=== PATIENT | female | born 1940 | race Caucasian/White ===

== ENCOUNTER 2021-10-17 20:32 | Inpatient (IN) | payer MEDICARE, SELFPAY ==
[2021-10-17] VITALS (7 sets, daily range): BP systolic 92–116; BP diastolic 66–83; PULSE 98–151; RESP 24–34; O2SAT 78–94; BMI 19.2
--- NOTE | 2021-10-17 20:41 | XRR_ITS ---
PROCEDURE INFORMATION: Exam: XR Chest Exam date and time: 10/17/2021 9:00 PM Age: 80 years old Clinical indication: Shortness of breath; Additional info: Atrial fib TECHNIQUE: Imaging protocol: XR of the chest. Views: 1 view. COMPARISON: No relevant prior studies available. FINDINGS: Lungs: The upper lungs are grossly clear however the mid and lower lung zones could not be adequately assessed. Follow-up with lateral view or CT may be helpful if clinically indicated. Increased opacity along the right perihilar and possibly right heart border may be related to partial right lung collapse or other para cardiac/mediastinal or pulmonary process. Pleural spaces: No obvious pneumothorax. Probable small right pleural effusion. Left pleural effusion may also be present. Heart/Mediastinum: Cardiac silhouette size is somewhat obscured but is probably enlarged. Diaphragm: Markedly elevated left hemidiaphragm. Correlation with diaphragmatic paralysis should be considered. The right hemidiaphragm may also somewhat elevated. Bones/joints: No acute findings. XR/XR chest 1V portable [id number] IMPRESSION: Extremely limited exam with multiple abnormalities as described above. Comparison prior study/CT correlation may be helpful.
--- NOTE | 2021-10-17 20:42 | ECG_ITS ---
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 Measurements Intervals [place] Rate: 164 P: MS: QRS: 56 QRSD: 85 T: 122 QT: 249 QTc: 412 Interpretive Statements ATRIAL FIBRILLATION WITH RAPID VENTRICULAR RESPONSE MINIMAL ST DEPRESSION [0.025+ mV ST DEPRESSION] ABNORMAL QRS-T ANGLE [QRS-T AXIS DIFFERENCE > 60] No previous ECG available for comparison Electronically Signed On 10-18-2021 20:28:22 CDT by Brendan Shepherd M.D. [id number] f
[2021-10-17] MEDS: sodium chloride 0.9% 500 ML IV (20:50)
[2021-10-17] MEDS: metoprolol tartrate 1 mg/1 mL SDV 5 mL 5 MG IVP (20:50)
[2021-10-17 20:54] LABS: Basophils % 0.2 %; Hematocrit 48.4 % (37.0-47.0); Hemoglobin 14.1 g/dL (11.5-15.3); Lymphocytes # 0.6 10^3/uL (0.8-4.8); Lymphocytes % 6.4 %; Mean Corpuscular HGB Conc 29.1 g/dL (30.0-36.0); Mean Corpuscular Hemoglobin 28.1 pg (28.0-34.0); Mean Corpuscular Volume 96.4 fl (81-99); Mean Platelet Volume 9.4 fL (7.4-10.4); Monocytes # 0.6 10^3/uL (0.2-0.9); Monocytes % 7.4 %; Neutrophils # 7.41 10^3/uL (1.8-7.7); Neutrophils % 85.5 %; Nucleated Red Blood Cells % 0.2 %; Platelet Count 199 10^3/cmm (130-400); Red Blood Count 5.02 10^6/uL (4.1-5.3); Red Cell Distribution Width 15.1 % (12.1-15.1); White Blood Count 8.7 10^3/uL (4.0-10.0)
--- NOTE | 2021-10-17 20:56 | ED_ITS ---
HPI - General Adult General: Chief complaint: Shortness of Breath/Dyspnea Stated complaint: WEAKNESS Time Seen by Provider: 10/17/21 20:35 History of Present Illness: 80-year-old female presents with fast heart rate and shortness of breath. Patient reports that she started having feelings of fast heart rate about 3 weeks ago. That she is been having a worsening shortness of breath. EMS reports that when they arrived that her heart rate was in the 200s and her oxygen was in the 70s. They placed an IV. EKG showed A. fib with RVR. They gave her 30 of Cardizem IV and started her on oxygen. Patient reports that she has no known medical history and is only been to the doctor 1 time in her life. She takes no medications. Patient does have a significant yeast infection along her pannus and left groin but does not state how long its been there. Associated symptoms: Reports dyspnea, malaise, rash (see hpi ) and palpitations; Deny chest pain, nausea or vomiting Review of Systems Const: Reports: malaise; Denies: fever(s) or chills Card: Reports: palpitations and irregular heart rhythm; Denies: chest pain Resp: Reports: dyspnea; Denies: wheezing GI: Denies: abdominal pain, nausea or vomiting : Denies: difficulty voiding Musc: Reports: other (no symptoms reported) Skin/Breast: Reports: rash (see hpi ) Physical Exam Const: COMMON NORMALS: alert GENERAL APPEARANCE: frail appearing HENMT: COMMON NORMALS: normocephalic and atraumatic HEAD & SCALP: normocephalic and atraumatic Chest: Breast/axilla inspection: Yes asymmetry Resp: EFFORT & INSPECTION: Yes tachypneic AUSCULTATION: diminished lung sounds diffuse Cardio: RATE: tachycardic RHYTHM: abnormal rhythm irregularly irregular GI: COMMON NORMALS: Soft to palpation PALPATION: Yes Soft to palpation and No Tenderness to palpation present (GI) Neuro: SENSORIUM/ORIENTATION: Yes alert Psych: APPEARANCE: Yes other (Frail, disheveled) Course Vital Signs: Vital signs: Vital Signs Pulse Rate 147 H 10/17/21 22:01 Respiratory Rate 33 H 10/17/21 22:01 Blood Pressure 116/83 10/17/21 20:36 Pulse Oximetry 94 10/17/21 22:01 MDM - General Adult Medical Decision Making While in the ER patient was given metoprolol 5 mg IV. Patient's heart rate would bounce between 120s to 160s. Patient remained on about 5 to 6 L oxygen with her O2 saturations in the mid 90s. Patient was placed on a Cardizem drip and her rate slowed to very sporadic 120s about 140s.. Patient's labs show a BUN of 48 creatinine 1.2. She is also given a 500 mL bolus. Patient with no prior history and no prior labs to compare so unsure what her baseline is. Patient had extremely limited chest x-ray. Was based on radiology impression was going to obtain lateral view to help with better impression however patient to be admitted to Dr. Wilkins who requested a CT be performed prior to her being transferred to the floor. Lab Data : 10/17/21 20:50 10/17/21 20:50 Radiology Impressions Chest X-Ray 10/17/21 20:41 IMPRESSION: Extremely limited exam with multiple abnormalities as described above. Comparison prior study/CT correlation may be helpful. Chest CT 10/17/21 22:06 IMPRESSION: 1. Markedly elevated left hemidiaphragm. See discussion above. 2. Small bilateral pleural effusions with adjacent consolidations which may represent compressive atelectasis versus pneumonia. Follow-up should be obtained. No ground-glass opacity. 3. Dilatation of main pulmonary artery and ascending aorta. 4. Etua-xt-esqnctpu cardiomegaly with coronary calcification probable mild vascular congestion. No obvious pulmonary edema. 5. Thyroid and vertebral findings as described above. See comments below. COMMENTS: 1. Consistent with the [place] [employer]'s Incidental Findings Committee white paper (J Am Stefania Radiol 2018): Any incidental renal lesion less than 1 cm or classified as too small to characterize, or any incidental cystic renal lesion characterized as simple-appearing, is likely benign. No follow-up imaging is recommended for these lesions per consensus recommendations based on imaging criteria. 2. Consistent with the [place] [employer]'s Incidental Findings Committee white paper (J Am Stefania Radiol 2015): In patients aged 35 years and older with an incidental thyroid nodule equal to or greater than 1.[address], MRI or extrathyroidal US, further evaluation with dedicated thyroid US is recommended for patients with normal life expectancy and without comorbidities. For smaller nodules without suspicious features, no further evaluation or follow up is recommended. 3. Limited life expectancy and comorbidities that increase the risk of treatment or are more likely to cause morbidity and mortality than the thyroid cancer itself. Patients with comorbidities or limited life expectancy should not have further evaluation, unless it is warranted clinically, or specifically requested by the patient or referring physician. Laboratory Results WBC 8.7 10^3/uL (4.0-10.0) 10/17/21 20:50 RBC 5.02 10^6/uL (4.1-5.3) 10/17/21 20:50 Hgb 14.1 g/dL (11.5-15.3) 10/17/21 20:50 Hct 48.4 % (37.0-47.0) H 10/17/21 20:50 MCV 96.4 fl (81-99) 10/17/21 20:50 MCH 28.1 pg (28.0-34.0) 10/17/21 20:50 MCHC 29.1 g/dL (30.0-36.0) L 10/17/21 20:50 RDW 15.1 % (12.1-15.1) 10/17/21 20:50 Plt Count 199 10^3/cmm (130-400) 10/17/21 20:50 MPV 9.4 fL (7.4-10.4) 10/17/21 20:50 Neut % (Auto) 85.5 % 10/17/21 20:50 Lymph % (Auto) 6.4 % 10/17/21 20:50 Ward % (Auto) 7.4 % 10/17/21 20:50 Eos % (Auto) 0.0 % 10/17/21 20:50 Baso % (Auto) 0.2 % 10/17/21 20:50 Neut # (Auto) 7.41 10^3/uL (1.8-7.7) 10/17/21 20:50 Lymph # (Auto) 0.6 10^3/uL (0.8-4.8) L 10/17/21 20:50 Ward # (Auto) 0.6 10^3/uL (0.2-0.9) 10/17/21 20:50 Eos # (Auto) 0.0 10^3/uL (0.0-0.8) 10/17/21 20:50 Baso # (Auto) 0.0 10^3/uL (0.0-0.1) 10/17/21 20:50 Nucleated RBC % (auto) 0.2 % 10/17/21 20:50 Nucleated RBCs # 0.0 /100WBC 10/17/21 20:50 Sodium 138 mmol/L (136-145) 10/17/21 20:50 Potassium 5.2 mmol/L (3.5-5.1) H 10/17/21 20:50 Chloride 99 mmol/L (98-107) 10/17/21 20:50 Carbon Dioxide 28 mmol/L (22-29) 10/17/21 20:50 Anion Gap 16.2 (5-19) 10/17/21 20:50 BUN 48 mg/dL (8-23) H 10/17/21 20:50 Creatinine 1.2 mg/dL (0.5-0.9) H 10/17/21 20:50 GFR Calculation Not Reportable 10/17/21 20:50 Glucose 116 mg/dL (65-115) H 10/17/21 20:50 Calculated Osmolality 300 mOsm/kg (285-295) H 10/17/21 20:50 Calcium 9.0 mg/dL (8.5-10.5) 10/17/21 20:50 Magnesium 2.3 mg/dL (1.7-2.3) 10/17/21 20:50 Total Bilirubin 0.7 mg/dL (0.15-1.2) 10/17/21 20:50 AST 38 U/L (0-32) H 10/17/21 20:50 ALT 48 U/L (0-33) H 10/17/21 20:50 Alkaline Phosphatase 130 IU/L (35-105) H 10/17/21 20:50 Troponin T Baseline 33 ng/L (0-10) H 10/17/21 20:50 Total Protein 6.7 g/dL (6.6-8.7) 10/17/21 20:50 Albumin 4.4 g/dL (3.5-5.2) 10/17/21 20:50 Globulin 2.3 g/dL (1.3-4.6) 10/17/21 20:50 TSH 0.01 uIU/mL (0.27-4.20) L 10/17/21 20:50 Free T4 1.62 ng/dL (0.82-1.77) 10/17/21 20:50 EKG Data EKG 1: I personally reviewed and interpreted this EKG as follows: EKG interpretation date: 10/17/21 EKG interpretation time: 22:42 Interpretation: Atrial for with RVR, PVCs, ventricular rate 131. No prior EKG Computer generated interpretation: Chest X-Ray 10/17/21 20:41 IMPRESSION: Extremely limited exam with multiple abnormalities as described above. Comparison prior study/CT correlation may be helpful. Chest CT 10/17/21 22:06 IMPRESSION: 1. Markedly elevated left hemidiaphragm. See discussion above. 2. Small bilateral pleural effusions with adjacent consolidations which may represent compressive atelectasis versus pneumonia. Follow-up should be obtained. No ground-glass opacity. 3. Dilatation of main pulmonary artery and ascending aorta. 4. Frfm-yo-faxjvzfd cardiomegaly with coronary calcification probable mild vascular congestion. No obvious pulmonary edema. 5. Thyroid and vertebral findings as described above. See comments below. COMMENTS: 1. Consistent with the [place] [employer]'s Incidental Findings Committee white paper (J Am Stefania Radiol 2018): Any incidental renal lesion less than 1 cm or classified as too small to characterize, or any incidental cystic renal lesion characterized as simple-appearing, is likely benign. No follow-up imaging is recommended for these lesions per consensus recommendations based on imaging criteria. 2. Consistent with the [place] [employer]'s Incidental Findings Committee white paper (J Am Stefania Radiol 2015): In patients aged 35 years and older with an incidental thyroid nodule equal to or greater than 1.[address], MRI or extrathyroidal US, further evaluation with dedicated thyroid US is recommended for patients with normal life expectancy and without comorbidities. For smaller nodules without suspicious features, no further evaluation or follow up is recommended. 3. Limited life expectancy and comorbidities that increase the risk of treatment or are more likely to cause morbidity and mortality than the thyroid cancer itself. Patients with comorbidities or limited life expectancy should not have further evaluation, unless it is warranted clinically, or specifically requested by the patient or referring physician. Discharge Plan Discharge Patient Disposition: Admitted As Inpatient Clinical Impression: Atrial fibrillation with RVR Condition: Stable Coding Level of Care Code ED Visual Effects Editor for Chg Fwd Exam Detailed
[2021-10-17 21:17] LABS: Troponin(5th) Baseline 33 ng/L (0-10)
[2021-10-17 21:22] LABS: Alanine Aminotransferase 48 U/L (0-33); Albumin Level 4.4 g/dL (3.5-5.2); Alkaline Phosphatase 130 IU/L (35-105); Anion Gap 16.2 (5-19); Aspartate Amino Transferase 38 U/L (0-32); Blood Urea Nitrogen 48 mg/dL (8-23); Carbon Dioxide 28 mmol/L (22-29); Chloride 99 mmol/L (98-107); Globulin 2.3 g/dL (1.3-4.6); Glucose 116 mg/dL (65-115); Magnesium 2.3 mg/dL (1.7-2.3); Osmolality Calculated 300 mOsm/kg (285-295); Potassium 5.2 mmol/L (3.5-5.1); Sodium 138 mmol/L (136-145); Thyroid Stimulating Hormone 0.01 uIU/mL (0.27-4.20); Total Bilirubin 0.7 mg/dL (0.15-1.2); Total Protein 6.7 g/dL (6.6-8.7)
[2021-10-17] MEDS: nystatin powder 15 gm Btl 1 APPLIC TOPICAL (21:32)
[2021-10-17 21:57] LABS: Free T4 Free Thyroxine 1.62 ng/dL (0.82-1.77)
--- NOTE | 2021-10-17 22:06 | CTR_ITS ---
PROCEDURE INFORMATION: Exam: CT Chest Without Contrast; Diagnostic Exam date and time: 10/17/2021 10:32 PM Age: 80 years old Clinical indication: Dyspnea TECHNIQUE: Imaging protocol: Diagnostic computed tomography of the chest without contrast. Radiation optimization: All CT scans at this facility use at least one of these dose optimization techniques: automated exposure control; mA and/or kV adjustment per patient size (includes targeted exams where dose is matched to clinical indication); or iterative reconstruction. COMPARISON: CR (CHEST, ) 10/17/2021 9:00 PM RADIATION DOSE METRICS: Total DLP (mGy-cm): 677.56 FINDINGS: Thyroid: Enlarged left thyroid lobe and is replaced by a heterogeneous solid partially calcified nodule, measuring about 3.4 x 3.1 cm. Lungs: Calcified right upper lobe pulmonary granuloma. Pleural spaces: Small right pleural effusion with small adjacent consolidation, likely compressive atelectasis however follow-up may be considered if there is a concern for developing pneumonia. There is also small left pleural effusion with adjacent left lower lobe consolidation. This may represent compressive atelectasis versus pneumonia and follow-up should also be obtained. Heart: Anfg-zy-cdffvstx cardiomegaly with coronary calcification. Lymph nodes: No enlarged lymph nodes. Vasculature: Moderate dilatation of main pulmonary artery at 4 cm. Clinical correlation for pulmonary hypertension should be obtained. Mild ascending aortic dilatation at 4.2 cm. There is pulmonary vascular redistribution suggesting element of mild vascular congestion. Diaphragm: The right diaphragm is in normal position. There is markedly elevated left hemidiaphragm and correlation with diaphragmatic paralysis should be considered. Kidneys and ureters: Hypodense left renal lesions, likely simple cysts, measuring up to 2.2 cm. Bones/joints: Several images are degraded due to external streak artifacts arising from patient's arm(s). Osteopenia. Multilevel moderate-severe compression deformities of thoracic and lumbar vertebral bodies with no subluxation. Small to moderate retropulsed elements are noted at T12 through L2 with jriu-dh-puxufnmb central spinal canal narrowing. Although these findings may be chronic, clinical correlation/comparison prior study should be considered. Soft tissues: No acute findings. CT/CT chest wo con [id number] IMPRESSION: 1. Markedly elevated left hemidiaphragm. See discussion above. 2. Small bilateral pleural effusions with adjacent consolidations which may represent compressive atelectasis versus pneumonia. Follow-up should be obtained. No ground-glass opacity. 3. Dilatation of main pulmonary artery and ascending aorta. 4. Lfad-hc-nvvutsvt cardiomegaly with coronary calcification probable mild vascular congestion. No obvious pulmonary edema. 5. Thyroid and vertebral findings as described above. See comments below. COMMENTS: 1. Consistent with the [place] [employer]'s Incidental Findings Committee white paper (J Am Stefania Radiol 2018): Any incidental renal lesion less than 1 cm or classified as too small to characterize, or any incidental cystic renal lesion characterized as simple-appearing, is likely benign. No follow-up imaging is recommended for these lesions per consensus recommendations based on imaging criteria. 2. Consistent with the [place] [employer]'s Incidental Findings Committee white paper (J Am Stefania Radiol 2015): In patients aged 35 years and older with an incidental thyroid nodule equal to or greater than 1.[address], MRI or extrathyroidal US, further evaluation with dedicated thyroid US is recommended for patients with normal life expectancy and without comorbidities. For smaller nodules without suspicious features, no further evaluation or follow up is recommended. 3. Limited life expectancy and comorbidities that increase the risk of treatment or are more likely to cause morbidity and mortality than the thyroid cancer itself. Patients with comorbidities or limited life expectancy should not have further evaluation, unless it is warranted clinically, or specifically requested by the patient or referring physician.
--- NOTE | 2021-10-17 22:42 | ECG_ITS ---
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 Measurements Intervals [place] Rate: 131 P: ND: QRS: 67 QRSD: 92 T: 79 QT: 290 QTc: 429 Interpretive Statements ATRIAL FIBRILLATION WITH RAPID VENTRICULAR RESPONSE WITH ABERRANT CONDUCTION OR VENTRICULAR PREMATURE COMPLEXES ABNORMAL RHYTHM ECG No previous ECG available for comparison Electronically Signed On 10-18-2021 20:37:17 CDT by Brendan Shepherd M.D. [email or web address] hospitals geauga medical centerAbigail Stewart/store/OM/[id number]/[id number]
[2021-10-17 23:25] LABS: Troponin 5 2HR 31.82 ng/L (0-10)
--- NOTE | 2021-10-17 23:25 | CTR_ITS ---
PROCEDURE INFORMATION: Exam: CT Head Without Contrast Exam date and time: 10/17/2021 11:28 PM Age: 80 years old Clinical indication: Other: Decreased responsiveness TECHNIQUE: Imaging protocol: Computed tomography of the head without contrast. Radiation optimization: All CT scans at this facility use at least one of these dose optimization techniques: automated exposure control; mA and/or kV adjustment per patient size (includes targeted exams where dose is matched to clinical indication); or iterative reconstruction. COMPARISON: No relevant prior studies available. RADIATION DOSE METRICS: Total DLP (mGy-cm): 1516.68 FINDINGS: Brain: No acute intracranial hemorrhage or mass effect. No definite acute infarct by CT. MRI could be more sensitive/specific for detection, as clinically directed. Cerebral ventricles: Ventricle size is normal for age. Paranasal sinuses: Included paranasal sinuses are essentially clear. Mastoid air cells: No significant acute finding. Bones/joints: No definite acute skull fracture. Soft tissues: No significant acute finding. Vasculature: Vascular calcifications in the internal carotid arteries. CT/CT head wo con* [id number] IMPRESSION: 1. No acute intracranial hemorrhage or mass effect. 2. No definite acute infarct by CT, see above. 3. Other findings discussed above.
--- NOTE | 2021-10-17 23:31 | P.HP_ITS ---
Providers/Chief Complaint Chief Complaint: WAEKNESS History of Present Illness The patient is a 72-year-old female who was transferred to the emergency department, I believe, for dyspnea. In the emergency department she is found to be in atrial fibrillation with rapid ventricular response. The patient has never been diagnosed with this previously. After 1 of the tests I had requested, CT of the chest, was performed evaluate the patient. The patient is unresponsive. She presents for further evaluation Review of Systems General: Reports: 10 or more systems reviewed and unremarkable except in HPI and below Vitals/I&O/Wt Last Vital Signs Pulse 147 H 10/17/21 22:01 Resp 33 H 10/17/21 22:01 BP 116/83 10/17/21 20:36 Pulse Ox 94 10/17/21 22:01 Weight last 48 hrs Weight 58.967 kg Physical Exam Narrative: General: -Alert -No acute distress -No dyspnea -No tachypnea Head: -Atraumatic -Normocephalic Eyes: -Pupils equally round and reactive to light and accommodation -Extraocular muscles intact Neurological: -Cranial nerves II-XII intact Neck: -No jugular venous distention -No thyromegaly -No cervical lymphadenopathy Heart: -Regular rate -Regular rhythm -No murmurs -No gallops -No rubs Lungs: -No wheeze -No rhonchi -No rales ? Abdomen: -Normal bowel sounds in all four quadrants -No rebound -No guarding -No tenderness Extremities: -2/4 pulse in all four extremities -No clubbing -No cyanosis -No edema -No calf tenderness present bilaterally -Negative Dev?s sign bilaterally Musculoskeletal: -5/5 bilateral upper extremity strength -5/5 bilateral lower extremity strength -Sensorium of bilateral upper extremities are equal and intact -Sensorium of bilateral lower extremities are equal and intact ? Additional Details / Additional Findings / Exceptions / Miscellaneous: Data : 10/17/21 20:50 10/17/21 20:50 A&P Assessment and plan (1) Atrial fibrillation with RVR: Status: Acute Plan Encephalopathy. Patient is obtunded to comatose at the time my encounter with with her. Will monitor patient on telemetry and check serial serial cardiac enzymes. Neuro checks every [address] of the head without contrast pending?stat. ABG pending. Ammonia level pending. Urine drug screen pending. Urinalysis pending. Admission to ICU for closer observation Atrial fibrillation. This may be a sequelae of hyperthyroidism. Will monitor patient on telemetry and checks her cardiac enzymes. Recheck EKG on the morning of September.2. Magnesium level within normal limits. Free T4 pending. Echo cardiac pending. IV Cardizem drip per protocol. I will initiate Lovenox 60 Mil l grams subcu tensely twice a day if the patient CT of the head is negative for acute process Transaminitis. Uncertain etiology. Will monitor LFTs periodically with CMP along with PT/INR. Creatine kinase level pending Acute renal insufficiency. Will monitor creatinine and intermittent. IV normal saline at 50 ML's per hour Query pneumonia. A cephamycin 500 Mill grams IV daily plus Rocephin 1 g IV daily plus ipratropium nebulized every 4 hours Hyperthyroidism. TSH depressed. Free T4 pending. Thyroid ultrasound pending. Antithyroglobulin antibody pending. Thyroid-stimulating immunoglobulin pending. Thyroid peroxidase antibody pending. Tapazole 5 Mill grams by mouth every 8 hours Coronary artery disease Osteopenia Query pulmonary hypertension. Echo cardiac pending DVT Proflex is. Bilateral SCD. If CT of the head is a negative for acute process, I will initiate Lovenox 60 Mill grams subcu tensely twice a day Attestations Medical Necessity Statement*: The patient's anticipate length of stay is greater than 2 midnights given that she is currently unresponsive, and has a new diagnosis of atrial fibrillation, and is hypoxic Coding Level of Care Code Acute Assembler Brazer for [facility] Diagnoses Atrial fibrillation with RVR I48.91
[2021-10-17 23:41] LABS: Troponin 5 2HR Delta -1.18 ABS# (0-10)
[2021-10-18] VITALS (112 sets, daily range): BP systolic 55–140; BP diastolic 24–100; PULSE 11–199; RESP 17–50; TEMP 35.4–37.3; O2SAT 75–100
[2021-10-18 00:01] LABS: Free T4 Free Thyroxine 1.52 ng/dL (0.82-1.77)
[2021-10-18 00:01] LABS: Alveolar-Arterial Oxygen Gradi 6.7 mmHg (5-10); Arterial Blood Gas Hematocrit 44.1 % (37-47); Base Excess ABG -2.9 mmol/L (-2.0-2.0); Blood Gas Allen Test Pos; Blood Gas Sample Site Brachial, left; Blood Gas Sample Type Arterial; HCO3 ABG 29.7 mmol/L (22-26); HGB O2 Sat 90.8 % (95-100); Ionized Calcium Level - ABG 1.2 mmol/L (1.1-1.4); Methemoglobin 0.6 % (0.4-1.5); Oxygen Device BIPAP; Oxygen Saturation ABG 92.3; PO2 ABG 82.3 mmHg (80.0-100.0); Potassium Level - ABG 5.3 mmol/L (3.5-5.0); Total Hemoglobin 14.4 g/dL (12-16)
[2021-10-18 00:02] LABS: ABG PCO2 96.3 mmHg (35-45)
[2021-10-18] MEDS: azithromycin 500 MG in sodium chloride 0.9% 250 ML 250 MG IV (00:21)
--- NOTE | 2021-10-18 00:45 | USCV_ITS ---
Hunter Lilia Age: 80 Gender: F : 1940 Exam Date: 10/18/2021 12:10 Ordering Phys: Tim Packer DO Technologist: Nalini Quiroga Exam Location: [facility] – [place] Indication: Chest Pain BP: 105 / 71 HR: 123 Rhythm: Sinus Technical Quality: Adequate MEASUREMENTS (Male / Female) Normal Values 2D ECHO LV Diastolic Diameter PLAX 2.6 cm 4.2 - 5.9 / 3.9 - 5.3 cm LV Systolic Diameter PLAX 1.7 cm LV Chamber Size 3.0 cm IVS Diastolic Thickness 1.0 cm 0.6 - 1.0 / 0.6 - 0.9 cm IVS Systolic Thickness 1.4 cm LVPW Diastolic Thickness 1.1 cm 0.6 - 1.0 / 0.6 - 0.9 cm LVPW Systolic Thickness 1.4 cm RV Chamber Size 3.1 cm LVOT Diameter 2.1 cm LV Ejection Fraction 2D Teich 67.7 % LV Ejection Fraction MOD 2C 65.7 % LV Ejection Fraction 2C AL 66.5 % LA Diameter 3.9 cm LA Width 2.3 cm LA Height 4.3 cm RA Width 3.1 cm RA Height 3.9 cm Aorta at Sinotubular Diameter 1.8 cm M-MODE Aortic Annulus Diameter 3.2 cm LA Ao Ratio MM 1.2 MV E Point Septal Separation 0.7 cm DOPPLER AV Peak Velocity 104.0 cm/s LVOT Peak Velocity 76.0 cm/s AV Area Cont Eq vti 3.6 cm squared AV Area Cont Eq pk 2.4 cm squared MV Area PHT 6.3 cm squared MV E' Velocity 45.5 cm/s Mitral E to MV E' Ratio 7.6 Mitral E to LV E' Lateral Ratio 8.1 Mitral E to LV E' Septal Ratio 7.2 TR Peak Velocity 229.6 cm/s TR Peak Gradient 21.1 mmHg TR Mean Velocity 159.4 cm/s TR Mean Gradient 11.8 mmHg TR Velocity Time Integral 47.5 cm TV Peak E Velocity 57.0 cm/s Right Atrial Pressure 8.0 mmHg Pulmonary Artery Systolic Pressu 29.1 mmHg PV Peak Velocity 46.0 cm/s RV Acceleration Time 0.1 s RV Ejection Time 0.3 s RV AcT/ET 0.4 FINDINGS Left Ventricle Technically limited quality echocardiogram because of poor ultrasonic windows. Normal left ventricular size. LV systolic function is normal with EF of 60-65%. No regional wall motion abnormalities. Diastolic function is indeterminate because of atrial fibrillation Right Ventricle Grossly normal Right Atrium The right atrium is normal in size. Left Atrium The left atrium is normal in size. Mitral Valve Grossly normal significant stenosis or prolapse. There is no mitral regurgitation. Aortic Valve Aortic valve is thickened and calcified. No significant stenosis. There is no aortic regurgitation. Tricuspid Valve Grossly normal. Mild tricuspid regurgitation. Pulmonary artery systolic pressure is normal. Pulmonic Valve Not well visualized Pericardium Normal pericardium without effusion. Aorta Normal ascending aorta dimension. IVC CONCLUSIONS Technically limited quality echocardiogram because of poor ultrasonic windows LV systolic function is normal with EF of 60-65% Diastolic function is indeterminate because of atrial fibrillation Mild tricuspid regurgitation No comparison study is available Brendan Shepherd MD (Electronically Signed) Final Date: 19 Oct 2021 13:32 S
--- NOTE | 2021-10-18 00:45 | USR_ITS ---
PROCEDURE INFORMATION: Exam: US Soft Tissue Head and Neck, Thyroid Exam date and time: 10/18/2021 2:31 AM Age: 80 years old Clinical indication: Abnormal findings; Abnormal thyroid lab test; Additional info: Hyperthyroid TECHNIQUE: Imaging protocol: Real-time ultrasound scan of the neck with image documentation. Exam focused on the thyroid. COMPARISON: CT head wo con* [id number] 10/17/2021 11:28 PM FINDINGS: Right thyroid lobe: The right thyroid lobe measures 1.3 x 1.8 x 4.4 cm. There is a heterogeneous echogenicity nodularity seen within the inferior aspect of the right thyroid lobe that measures 8 x 12 x 8 mm possibly representing a benign colloid cyst. Left thyroid lobe: The left thyroid lobe measures 3.9 x 3.4 x 4.4 cm. There is a heterogeneous mass seen in the left thyroid lobe exhibiting internal vascularity with color Doppler imaging. The mass measures 3.9 x 3.2 x 3.6 cm. Isthmus: No nodules. US/US thyroid [id number] IMPRESSION: Left thyroid lobe mass measuring 3.9 x 3.2 x 3.6 cm.
--- NOTE | 2021-10-18 01:08 | PC.NURSE ---
Transfer Note Patient transferred to ICU from ER via stretcher. Handoff received from DEVON Winn. Patient unresponsive upon arrival, wearing BIPAP mask and has cardizem gtt infusing per protocol. Covering service notified. Orders reviewed and will continue to monitor. Received in report that ER nurse was unable to contact family and provide update, due to provided numbers in chart being out of service when called.
--- NOTE | 2021-10-18 01:09 | PC.NURSE ---
Active Patient Warming Patient rectal temp 95.7. Called Dr. Packer, received orders to start active patient warming and apply geraldo hugger blanket.
[2021-10-18] MEDS: ipratropium 0.5 mg/2.5 mL Neb INHALATION ×3 (01:10→08:06)
[2021-10-18 01:14] LABS: Ammonia 68 umol/L (11-51)
[2021-10-18] MEDS: enoxaparin 60 mg/0.6 mL Syringe SUBCUT ×2 (01:18→12:54)
[2021-10-18] MEDS: sodium chloride 0.9% 1,000 ML 50 ML IV (01:18)
--- NOTE | 2021-10-18 01:18 | PC.NURSE ---
New Orders Received Patient BP noted to be 74/51 MAP 58 and HR of 118 on a Cardizem gtt at 10 mg/hr. Notified Dr. Packer of patient vitals-he gave orders to d/c cardizem gtt and start patient on Amiodarone gtt per protocol.
[2021-10-18 01:21] LABS: Arterial Blood Gas Hematocrit 42.6 % (37-47); Base Excess ABG -2.6 mmol/L (-2.0-2.0); Blood Gas Allen Test Pos; Blood Gas Sample Site Radial, left; Blood Gas Sample Type Arterial; HCO3 ABG 29.5 mmol/L (22-26); Oxygen Device BIPAP
[2021-10-18 01:22] LABS: ABG PCO2 92.6 mmHg (35-45); ABG PH Result 7.11 (7.35-7.45)
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
--- NOTE | 2021-10-18 01:31 | PC.NURSE ---
New Orders Received Patient BP 50/41, informed Dr. Packer who gave orders to start a Levophed gtt per protocol.
[2021-10-18 01:32] LABS: Add Urine Microscopic? NO
[2021-10-18 01:47] LABS: Amphetamines Screen Urine Negative (Negative); Barbiturates Screen Urine Negative (Negative); Benzodiazepines Screen Urine Negative (Negative); Blood Urine 2+ (Negative); Cocaine Screen Urine Negative (Negative); Glucose Urine UA Norm (Normal); Ketones Urine Negative (Negative); Opiate Screen Urine Negative (Negative); PCP Screen Urine Negative (Negative); Protein Urine 3+ (Negative); Specific Gravity, Urine 1.025 (1.005-1.030); THC Screen Urine Negative (Negative); Urine Appearance Clear (CLEAR); Urine Color Dark Yellow (Yellow); pH Urine 5 (5-7)
[2021-10-18 01:48] LABS: Bilirubin Urine 1+ (Negative); Leukocyte Esterase Urine 1+ (Negative); Nitrate Urine Positive (Negative); Urobilinogen Urine 4 mg/dL (Negative)
[2021-10-18 01:49] LABS: Add Urine Culture? Yes; Bacteria Urine 4+ /hpf; Hyaline Casts Urine 0-4 /lpf; Mucus Urine 2+ /hpf; RBC Urine 0-4 /hpf (0-2)
--- NOTE | 2021-10-18 01:54 | USR_ITS ---
PROCEDURE INFORMATION: Exam: US Abdomen, Limited; Right Upper Quadrant Exam date and time: 10/18/2021 2:57 AM Age: 80 years old Clinical indication: Other: Liver enzymes increased; Patient HX: PT not able to give any history. ; Additional info: Ruq US: Elevated lft TECHNIQUE: Imaging protocol: US abdomen. Real time ultrasound with image documentation. Limited exam focused on the right upper quadrant. COMPARISON: CT chest wo con [id number] 10/17/2021 10:32 PM FINDINGS: Liver: The liver measures 13.4 cm in the midclavicular plane. No mass. No evidence of intrahepatic biliary ductal dilatation. Gallbladder: The gallbladder could not be visualized. Biliary ducts: The common bile duct could not be visualized. Pancreas: The pancreas is obscured by bowel gas. Right kidney: The right kidney measures 11.0 x 6.5 x 7.1 cm. Mild pelviectasis measuring 9 mm AP dimension. A brief color Doppler examination of the right kidney was performed showing normal color shifts. Aorta: Unremarkable proximal abdominal aorta at. Inferior vena cava: Unremarkable IVC. Portal venous: A brief color and pulsed Doppler examination of the portal vein was performed showing normal hepatopedal flow. Hepatic veins: A brief color Doppler examination of the hepatic veins was performed, demonstrating normal antegrade flow. US/US abdomen limited [id number] IMPRESSION: 1. Limitations as above. 2. The gallbladder could not be visualized. Clinical correlation (prior cholecystectomy?) is recommended. 3. Mild right renal pelviectasis.
[2021-10-18 03:06] LABS: INR 1.38 (0.8-1.2)
[2021-10-18] MEDS: lactulose oral liq 20 gm/30 mL UDC 200 GM PR (03:07)
[2021-10-18 03:10] LABS: Ammonia 78 umol/L (11-51)
[2021-10-18 03:14] LABS: Alanine Aminotransferase 47 U/L (0-33); Albumin Level 3.8 g/dL (3.5-5.2); Alkaline Phosphatase 120 IU/L (35-105); Anion Gap 17.5 (5-19); Aspartate Amino Transferase 39 U/L (0-32); Blood Urea Nitrogen 49 mg/dL (8-23); Calcium 8.7 mg/dL (8.5-10.5); Carbon Dioxide 26 mmol/L (22-29); Chloride 102 mmol/L (98-107); Globulin 2.4 g/dL (1.3-4.6); Glucose 111 mg/dL (65-115); Osmolality Calculated 304 mOsm/kg (285-295); Potassium 5.5 mmol/L (3.5-5.1); Sodium 140 mmol/L (136-145); Total Bilirubin 0.6 mg/dL (0.15-1.2); Total Protein 6.2 g/dL (6.6-8.7); Troponin 5 6HR 30.83 ng/L (0-10)
[2021-10-18 03:23] LABS: Hepatitis A Antibody IgM Non-Reactive (Nonreactive); Hepatitis B Core IgM Non-Reactive (Nonreactive); Hepatitis B Surface Antigen Non-Reactive (Nonreactive); Hepatitis C Virus Antibody Non-Reactive (Nonreactive)
[2021-10-18 03:25] LABS: Troponin 5 6HR Delta -2.17 ng/L (0-12)
[2021-10-18 04:01] LABS: ABG PCO2 48.7 mmHg (35-45); ABG PH Result 7.33 (7.35-7.45); Arterial Blood Gas Hematocrit 43.6 % (37-47); Blood Gas Allen Test Pos; Blood Gas Sample Site Radial, left; Blood Gas Sample Type Arterial; HCO3 ABG 25.5 mmol/L (22-26); Oxygen Device BIPAP
--- NOTE | 2021-10-18 05:30 | PC.NURSE ---
Change in Condition Patient woke up, alert/oriented. She is talking and asking questions. Dr. Packer gave orders for a nursing bedside swallow study performed.
--- NOTE | 2021-10-18 06:08 | PC.NURSE ---
Change in Orders Patient passed nursing bedside swallow study, Dr. Packer gave orders to update Kayexalate 30 mg NV to PO.
[2021-10-18] MEDS: sodium polystyrene sulfonate 15 gm/60 mL Btl 30 GM PO (06:17)
--- NOTE | 2021-10-18 08:19 | PM.PN ---
Subjective Subjective: Patient admitted overnight. This morning, she remains on the BiPAP for acute respiratory failure. She does arouse to verbal and physical stimulation, but quickly returns to stuporous state. She endorses shortness of breath. She denies pain. She remains in atrial fibrillation with a rapid ventricular rate and hypotensive on Levophed. She was reportedly living alone and independent prior to this acute illness. Medications: Reviewed: Yes Vitals/I&O/Wt Last Vital Signs Temp 99.2 F 10/18/21 04:00 Pulse 130 H 10/18/21 08:00 Resp 23 H 10/18/21 08:00 BP 98/82 10/18/21 06:05 Pulse Ox 99 10/18/21 08:00 10/17/21 10/18/21 10/18/21 22:59 06:59 14:59 Intake Total 500 / 500 429.329 / 929.329 160.782 / 160.782 Output Total 200 / 200 Balance 500 / 500 229.329 / 729.329 160.782 / 160.782 Weight last 48 hrs Weight 61.49 kg Weight 58.967 kg Physical Exam Narrative: General: Patient is in a stuporous state. Head: Normocephalic. Atraumatic. Neck: No JVD. Cardiovascular: Irregularly irregular rhythm. Tachycardic. No gallops. No murmurs. Lungs: Breath sounds are diminished bilateral bases, tachypneic, no wheezes, faint crackles present. Skin: No jaundice. No rashes. Abdomen: Hypoactive bowel sounds, abdomen soft and nontender. Genito Urinary: Genital exam not performed since complaints not related. Rectal: Rectal exam not performed since no symptoms indicated blood loss. Extremeties: No cyanosis or clubbing. Musculoskeletal: No erythematous joints. Neurological: Moves all 4 extremities. No myoclonus. Urinary Catheter Management: Simpson: Cath Placed During This Visit: yes Reason for Continuing Indwelling Catheter: Accurate Measurement of Urinary Output in Critically Ill Patients Urinary Catheter Date of Insertion: 10/18/21 Urinary Catheter Time of Insertion: 00:00 Data : 10/17/21 20:50 10/18/21 02:32 A&P Assessment and plan (1) Shock: -Septic shock secondary to urinary tract infection -Continue Levophed for map goal of 65 mmHg -Blood cultures x2 stat -Follow-up urine culture -Additional NS 1L bolus -Procalcitonin, CRP, and lactic acid for prognostication -Discontinue ceftriaxone and azithromycin -Start vancomycin, pharmacy to dose -MRSA swab ordered -Start Zosyn for broad-spectrum gram-negative coverage -Simpson catheter for strict I's and O's Status: Acute (2) Atrial fibrillation with RVR: -Newly diagnosed -Continue IV amiodarone -Continue therapeutic anticoagulation with Lovenox -Continuous telemetry monitoring -TTE pending -Optimize electrolytes -Cardiology consulted, appreciate recommendations Status: Acute (3) UTI (urinary tract infection): -Suspected source of sepsis -Follow-up urine culture -Antibiotics as above Status: Acute (4) Altered mental status: -Secondary to sepsis and CO2 retention -Treat underlying infection and optimize respiratory status -Frequent reorientation Status: Acute (5) Acute respiratory failure: -Acute hypoxic hypercapnic respiratory failure requiring noninvasive mechanical ventilation secondary to sepsis -Continue BiPAP -Monitor mental status closely, low threshold for intubation -Discontinue Solumedrol -Change ipratropium nebs to DuoNebs PRN -Serial ABGs as needed Status: Acute (6) Hypothermia: -Secondary to sepsis -Continue external warming Status: Acute (7) Transaminitis: -Trend liver function enzymes -Right upper quadrant ultrasound is pending Status: Acute (8) Thyroid disease: -TSH markedly low with free T4 within normal limits c/w subclinical hyperthyroidism -Discontinue methimazole -T3 ordered -Will need repeat TFTs in the future Status: Acute (9) Thyroid mass: -Low TSH suggests nodules may be hyperfunctioning -Consider thyroid scintigraphy when patient is more stable Status: Acute (10) Hyperkalemia: -Kayexalate ordered -Repeat renal panel in afternoon -Telemetry monitoring Status: Acute (11) Renal insufficiency: -Suspect prerenal physiology in the setting of shock -Strict I&Os -NS 1L bolus -Continue maintenance fluids -Daily weights Status: Acute (12) Hyperammonemia: -Consider lactulose if mentation does not improve Status: Acute (13) Myocardial injury: -2/2 septic shock and a-fib w/RVR -Denies chest pain -Telemetry monitoring Status: Acute (14) Coronary artery disease: -No home medications listed -Will need to clarify if patient is on home regimen when her mentation improves Status: Acute Plan DVT ppx: Therapeutic Lovenox GI ppx: Pantoprazole CODE STATUS: Full code Attestations Medical Necessity Statement*: Patient is in septic shock requiring continue hospitalization for respiratory support, IV vasopressors, IV antibiotics. Time Spent in Patient Care: The high probability of a clinically significant, sudden or life threatening deterioration of the patient's respiratory, cardiovascular, circulatory, renal system(s) required my full and direct attention, intervention and personal management. The critical care time is as shown. This time is in addition to time spent performing any reported procedures but includes the following: [x] Data and vital sign review and interpretation [x] Patient assessment, examination and intervention [x] Documentation [x] Medication orders and management Critical Care Time: 40 Coding Level of Care Code Acute Consulting Engineer for [facility] Fwd Diagnoses Atrial fibrillation with RVR I48.91 Shock R57.9 UTI (urinary tract infection) N39.0 Altered mental status R41.82 Acute respiratory failure J96.00 Transaminitis R74.01 Coronary artery disease I25.10 Thyroid mass E07.9 Hyperkalemia E87.5 Renal insufficiency N28.9 Hyperammonemia E72.20 Myocardial injury I5A Hypothermia T68.XXXA Thyroid disease E07.9
[2021-10-18] MEDS: sodium polystyrene sulfonate 15 gm/60 mL Btl PO (08:44)
--- NOTE | 2021-10-18 08:46 | PM.CONSULT ---
Providers/Reason For Consult Consulting Physician/Specialty*: Brendan Shepherd MD/ Cardiology Reason for Consult*: Afib with RVR Requesting Physician: Dr Smith Attending Physician: Shar Smith MD History of Present Illness History of Present Illness Lilia Hunter is a 80 year old female who presented to the hospital with dyspnea and altered mental status. She was found to be in atrial fibrillation with RVR. She also has UTI and is currently on pressor support. She was requiring BiPAP for her dyspnea which was temporarily taken off. Denies any chest pain. Review of Systems Narrative: CONSTITUTIONAL: Short of breath HEENT: Normocephalic, atraumatic.[] RESPIRATORY: Significant shortness of breath CARDIOVASCULAR: Palpitations and shortness of breath GI: no nausea vomiting diarrhea. [] FACTORY MAINTENANCE TECHNICIAN: No numbness, tingling, weakness or loss of function in any part of the body. [] MUSCULOSKELETAL: No knee or joint pain or rashes. [] Medications/Allergies Allergies Allergy/AdvReac Type Severity Reaction Status Date / Time No Known Allergies Allergy Verified 10/18/21 09:26 Current Medications Generic Name Dose Route Start Last Admin Trade Name Freq PRN Reason Stop Dose Admin Enoxaparin Sodium 60 mg 10/17/21 23:58 10/18/21 01:18 Enoxaparin 60 Mg/0.6 Ml Syringe SUBCUT 60 mg Q12H RISSA Administration Sodium Chloride 1,000 mls @ 50 mls/hr 10/17/21 23:58 10/18/21 01:18 Sodium Chloride 0.9% IV 50 mls/hr .Q20H RISSA Administration Amiodarone HCl 900 mg/ 518 mls @ 0 mls/hr 10/18/21 01:30 10/18/21 01:56 Dextrose/ IV Miscellaneous IV 1 mg/min Supplies .Q0M RISSA 34.53 mls/hr Administration Protocol Per Protocol Norepinephrine Bitartrate 4 mg 254 mls @ 0 mls/hr 10/18/21 01:32 10/18/21 07:37 / Dextrose IV 12 mcg/min .Q0M RISSA 45.72 mls/hr Titration Protocol Per Protocol Lactulose 200 gm 10/18/21 02:00 10/18/21 03:07 Lactulose Oral Liq 20 Gm/30 Ml Udc OR 200 gm Q6H RISSA Administration Vitals/I&O/Wt Last Vital Signs Temp 99.2 F 10/18/21 04:00 Pulse 130 H 10/18/21 08:00 Resp 23 H 10/18/21 08:00 BP 98/82 10/18/21 06:05 Pulse Ox 99 10/18/21 08:00 10/17/21 10/18/21 10/18/21 22:59 06:59 14:59 Intake Total 500 / 500 429.329 / 929.329 160.782 / 160.782 Output Total 200 / 200 Balance 500 / 500 229.329 / 729.329 160.782 / 160.782 Weight last 48 hrs Weight 135 lb 9 oz Weight 130 lb Physical Exam Narrative: GENERAL: Patient is alert, significantly dyspneic NECK: No jugular vein distension. [] HEENT: No cyanosis. No icterus. No pallor. [] HEART: Tachycardic, irregularly irregular LUNGS: Mild crackles, decreased heart sounds ABDOMEN: Soft CENTRAL NERVOUS SYSTEM: Grossly nonfocal. [] EXTREMITIES: 1-2+ pitting edema bilaterally [] Urinary Catheter Management: Simpson: Cath Placed During This Visit: yes Reason for Continuing Indwelling Catheter: Accurate Measurement of Urinary Output in Critically Ill Patients Urinary Catheter Date of Insertion: 10/18/21 Urinary Catheter Time of Insertion: 00:00 Data : 10/17/21 20:50 10/18/21 02:32 A&P Assessment and plan (1) Shock: Status: Acute (2) Atrial fibrillation with RVR: Status: Acute (3) Acute respiratory failure: Status: Acute (4) UTI (urinary tract infection): Status: Acute (5) Altered mental status: Status: Acute (6) Renal insufficiency: Status: Acute (7) Hyperammonemia: Status: Acute (8) Hyperkalemia: Status: Acute Plan Patient denies any prior cardiac history and is here for altered mental status, shortness of breath and was found to be in A. fib with RVR. Her heart rates are uncontrolled. Will start digoxin. Continue amiodarone. IV anticoagulation. Order echocardiogram. Patient's chest x-ray shows significantly elevated left diaphragm. Planning consult pulmonology. Obtain ABG. She is very dyspneic and may require intubation. We can consider cardioversion however given her overall situation, she will not stay in normal sinus rhythm. If heart rates are uncontrolled after digoxin we will consider that. Thank you for involving us with care of this patient. We will continue to follow. Please call with questions. Consult Attestations Medical Necessity Statement: Care expected to cross 2 midnights. 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
[2021-10-18] MEDS: pantoprazole 40 mg SDV IVP (08:49)
[2021-10-18] MEDS: piperacillin-tazobactam 3.375 GM in sodium chloride 0.9% (plus) 50 ML IV ×2 (08:49→17:28)
[2021-10-18] MEDS: sodium chloride 0.9% 1,000 ML 999 ML IV (09:01)
[2021-10-18] MEDS: digoxin 250 mcg/ml INJ 2 mL IVP ×2 (10:31→17:32)
[2021-10-18] MEDS: vancomycin 1,000 MG in sodium chloride 0.9% 250 ML 250 MG IV (10:45)
--- NOTE | 2021-10-18 11:01 | PC.NURSE ---
placed back on bipap at this time weaning levophed gtt at this time alert and oriented digoxin stated
[2021-10-18 13:55] LABS: C Reactive Protein 8.2 mg/L (0.0-4.9); Lactate (Lactic Acid level) 1.2 mmol/L (0.5-2.2)
[2021-10-18 14:02] LABS: Procalcitonin 0.09 ng/mL (0-0.5); T3 Free 4.3 PG/ML (2.0-4.4)
[2021-10-18 14:08] LABS: ABG PH Result 7.21 (7.35-7.45); Alveolar-Arterial Oxygen Gradi 7.9 mmHg (5-10); Arterial Blood Gas Hematocrit 41.6 % (37-47); Base Excess ABG 0.2 mmol/L (-2.0-2.0); Blood Gas Allen Test Pos; Blood Gas Operator Identificat BD; Blood Gas Sample Site Brachial, right; Blood Gas Sample Type Arterial; HCO3 ABG 30.1 mmol/L (22-26); HGB O2 Sat 91.8 % (95-100); Ionized Calcium Level - ABG 1.1 mmol/L (1.1-1.4); Methemoglobin 0.6 % (0.4-1.5); Oxygen Device NC; Oxygen Saturation ABG 93.2; PO2 ABG 76.5 mmHg (80.0-100.0); Total Hemoglobin 13.6 g/dL (12-16)
[2021-10-18 14:09] LABS: ABG PCO2 74.4 mmHg (35-45)
[2021-10-18 14:12] LABS: Albumin Level 3.7 g/dL (3.5-5.2); Anion Gap 17.2 (5-19); Blood Urea Nitrogen 53 mg/dL (8-23); Carbon Dioxide 26 mmol/L (22-29); Chloride 103 mmol/L (98-107); Glucose 143 mg/dL (65-115); Phosphorus 5.1 mg/dL (2.5-4.5); Potassium 4.2 mmol/L (3.5-5.1); Sodium 142 mmol/L (136-145)
--- NOTE | 2021-10-18 15:27 | PC.NURSE ---
large amts of loose bm noted cresencio care done and linen changed very short of breath with any activiy o2 sats decreased to 90
--- NOTE | 2021-10-18 15:50 | PC.NURSE ---
family here talked with doctor at length .. weaning levophed at this time
[2021-10-19] VITALS (54 sets, daily range): BP systolic 83–126; BP diastolic 56–86; PULSE 103–150; RESP 20–38; TEMP 36.4–37.5; O2SAT 88–98; BMI 20.7
[2021-10-19] MEDS: enoxaparin 60 mg/0.6 mL Syringe SUBCUT ×3 (00:29→22:48)
[2021-10-19] MEDS: piperacillin-tazobactam 3.375 GM in sodium chloride 0.9% (plus) 50 ML IV ×3 (00:30→17:29)
--- NOTE | 2021-10-19 04:49 | PC.NURSE ---
New Orders Patient told this nurse I feel like I can't breathe . Patient breathing 30 BPM and has HR of 133, this nurse called Dr. Packer with an update on patient condition. He gave orders for Ativan 1 mg ONCE.
[2021-10-19 04:51] LABS: Basophils % 0.1 %; Eosinophils % 0.1 %; Hemoglobin 12.7 g/dL (11.5-15.3); Lymphocytes # 0.5 10^3/uL (0.8-4.8); Lymphocytes % 4.8 %; Mean Corpuscular HGB Conc 30.2 g/dL (30.0-36.0); Mean Corpuscular Volume 92.7 fl (81-99); Mean Platelet Volume 9.5 fL (7.4-10.4); Monocytes # 0.7 10^3/uL (0.2-0.9); Monocytes % 6.6 %; Neutrophils # 9.11 10^3/uL (1.8-7.7); Nucleated Red Blood Cells % 0.3 %; Platelet Count 164 10^3/cmm (130-400); Red Blood Count 4.53 10^6/uL (4.1-5.3); White Blood Count 10.4 10^3/uL (4.0-10.0)
[2021-10-19] MEDS: sodium chloride 0.9% 1,000 ML 50 ML IV (04:55)
[2021-10-19] MEDS: LORazepam 2 mg/mL INJ 1 mL 1 MG IVP (05:00)
[2021-10-19 05:12] LABS: Alanine Aminotransferase 37 U/L (0-33); Albumin Level 3.5 g/dL (3.5-5.2); Alkaline Phosphatase 98 IU/L (35-105); Anion Gap 14.2 (5-19); Aspartate Amino Transferase 22 U/L (0-32); Blood Urea Nitrogen 52 mg/dL (8-23); Calcium 7.9 mg/dL (8.5-10.5); Carbon Dioxide 27 mmol/L (22-29); Chloride 101 mmol/L (98-107); Glucose 112 mg/dL (65-115); Magnesium 2.3 mg/dL (1.7-2.3); Osmolality Calculated 303 mOsm/kg (285-295); Phosphorus 3.9 mg/dL (2.5-4.5); Potassium 3.2 mmol/L (3.5-5.1); Sodium 139 mmol/L (136-145); Total Bilirubin 0.9 mg/dL (0.15-1.2); Total Protein 5.5 g/dL (6.6-8.7)
--- NOTE | 2021-10-19 06:32 | PC.NURSE ---
Shift Summary Patient had an uneventful shift, remains on BIPAP 30% FiO2. Amiodarone, Levophed, NS,
[2021-10-19] MEDS: pantoprazole 40 mg SDV IVP (08:25)
--- NOTE | 2021-10-19 09:08 | PC.CHAP ---
Pastoral Care Encounter/Spiritual Assessment Type of Contact [] Declined motor winder visit [] Patient/Family/Request visit [] Outpatient visit [] Follow-up visit [] Physician referral [] Code/Alert [x] Routine visit [] Staff referral [] Actively dying [x] Patient sleeping [] Family support [] [] Out of room [] Palliative care [] [] Receiving care in room [] Pre-surgical visit [] Trauma [] Long length of stay [x] ICU visit [x] Other: oxg mask Relational/Emotional Strength [] Patient feels connected with others/family/visitors/staff [] Distress [] Loneliness/isolation [] Abandonment Spirituality of Patient [] Person of Domi [] Attends Congregation of their Domi [] Believes in Prayer [] Reads Bible or Sikhism materials [] There are Spiritual issues to be addressed Supervisor Yard Interventions [x] Prayer [] Active listening [] Non-anxious presence [] Spiritual/emotional support [] Crisis/trauma care [] Spiritual counseling [] Bereavement support [] Provided bereavement packet [] Provided Bible/devotional materials [] Provided toy/stuffed animal, coloring book to patient or family member [] Provided Communion [] Anointing/[place] [] Salvation [x] Completed spiritual assessment [] Other: Impact on Illness or Injury [] Angry [] Fearful [] Anxious [] Often cries [] Exhaustion [] Unable to work [] Unable to attend sikh [] Unable to walk/stand [] Unable to read [] Unable to drive [] Unable to eat/drink [] Unable to sleep [] Unable to be with family [] Patient intubated [] Other: Summary Time spent with patient
[2021-10-19 09:29] LABS: Digoxin 0.8 ng/mL (0.6-1.2)
[2021-10-19 09:31] LABS: ABG PCO2 53.1 mmHg (35-45); ABG PH Result 7.38 (7.35-7.45); Alveolar-Arterial Oxygen Gradi 7.3 mmHg (5-10); Arterial Blood Gas Hematocrit 39.2 % (37-47); Blood Gas Allen Test Pos; Blood Gas Operator Identificat BD; Blood Gas Sample Site Brachial, right; Blood Gas Sample Type Arterial; Carboxyhemoglobin 0.9 %THgb (0.4-20.1); HCO3 ABG 31.4 mmol/L (22-26); HGB O2 Sat 96.1 % (95-100); Ionized Calcium Level - ABG 1.1 mmol/L (1.1-1.4); Methemoglobin 0.4 % (0.4-1.5); Oxygen Device BIPAP; Oxygen Saturation ABG 97.4; PO2 ABG 91.1 mmHg (80.0-100.0); Potassium Level - ABG 3.1 mmol/L (3.5-5.0); Total Hemoglobin 12.8 g/dL (12-16)
[2021-10-19 09:35] LABS: Iron 30 ug/dL (37-145); NT Pro B Type Natriuretic Pept 4216 pg/mL (0-450); Percent Saturation 13.2 % (20-50); Thyroid Stimulating Hormone 0.01 uIU/mL (0.27-4.20); Total Iron Binding Capacity 226 mcg/dl; Unsaturated Iron Binding 196 ug/dL (112-347)
[2021-10-19] MEDS: dilTIAZem 5 mg/mL SDV 5 mL 10 MG IVP ×2 (10:17→12:25)
[2021-10-19] MEDS: lidocaine 1% 5 ML in potassium chloride premix 100 ML 25 ML IV (10:20)
[2021-10-19 10:56] LABS: Cortisol Random 33.77 ug/dL (2.47-19.5); Vancomycin Random 7.6 ug/mL (20.0-40.0)
--- NOTE | 2021-10-19 11:16 | PM.PN ---
Subjective Subjective: Patient is sleepy. On BiPAP Vitals/I&O/Wt Last Vital Signs Temp 99.1 F 10/19/21 08:00 Pulse 117 H 10/19/21 10:49 Resp 21 H 10/19/21 09:30 BP 86/64 10/19/21 09:30 Pulse Ox 95 10/19/21 10:49 10/18/21 10/19/21 10/19/21 22:59 06:59 14:59 Intake Total 822.572 / 2826.572 1450 / 4276.572 Output Total 350 / 350 300 / 650 Balance 472.572 / 2476.572 1150 / 3626.572 Weight last 48 hrs Weight 140 lb 6 oz Weight 135 lb 9 oz Weight 130 lb Physical Exam Narrative: GENERAL: Patient is sleepy. on BiPAP NECK: No jugular vein distension. [] HEENT: No cyanosis. No icterus. No pallor. [] HEART: Tachycardic, irregularly irregular LUNGS: Mild crackles, decreased heart sounds ABDOMEN: Soft CENTRAL NERVOUS SYSTEM: Grossly nonfocal. [] EXTREMITIES: 1-2+ pitting edema bilaterally [] Urinary Catheter Management: Simpson: Cath Placed During This Visit: yes Reason for Continuing Indwelling Catheter: Accurate Measurement of Urinary Output in Critically Ill Patients Urinary Catheter Date of Insertion: 10/18/21 Urinary Catheter Time of Insertion: 00:00 Data : 10/19/21 04:29 10/19/21 04:29 Micro: Microbiology 10/18/21 01:15 Urine Culture - Preliminary Urine Catheterized Gram Negative Rods 10/18/21 13:20 Blood Culture - Preliminary Blood SPECIMEN COLLECTED 10/18/21 13:10 Blood Culture - Preliminary Blood SPECIMEN COLLECTED A&P Assessment and plan (1) Shock: Status: Acute (2) Atrial fibrillation with RVR: Status: Acute (3) Acute respiratory failure: Status: Acute (4) UTI (urinary tract infection): Status: Acute (5) Altered mental status: Status: Acute (6) Renal insufficiency: Status: Acute (7) Hyperammonemia: Status: Acute (8) Hyperkalemia: Status: Acute Plan Patient denies any prior cardiac history and is here for altered mental status, shortness of breath and was found to be in A. fib with RVR. Her heart rates are uncontrolled. Patient has been put on digoxin. Continue amiodarone. ECHO done. ECHO is of limited quality but has normal LV systolic function Patient's chest x-ray shows significantly elevated left diaphragm. Planning consult pulmonology. We can consider cardioversion however given her overall situation, chances of staying in normal sinus rhythm are slim. Heart rates have improved slightly compared to yesterday Thank you for involving us with care of this patient. We will continue to follow. Please call with questions. Attestations Medical Necessity Statement*: Care expected to cross 2 midnights. Coding Level of Care Code Acute Weatherization Field Technician for [facility] Fwd Diagnoses Shock R57.9 Atrial fibrillation with RVR I48.91 Acute respiratory failure J96.00 UTI (urinary tract infection) N39.0 Altered mental status R41.82 Renal insufficiency N28.9 Hyperammonemia E72.20 Hyperkalemia E87.5
[2021-10-19 11:17] LABS: Ammonia 42 umol/L (11-51)
[2021-10-19] MEDS: amiodarone 200 mg Tablet 400 MG PO ×2 (12:18→17:35)
[2021-10-19] MEDS: digoxin 125 mcg Tablet PO (12:18)
[2021-10-19] MEDS: vancomycin 1,000 MG in sodium chloride 0.9% 250 ML 250 MG IV (12:19)
--- NOTE | 2021-10-19 13:50 | PM.PN ---
Subjective Subjective: Hospital course, labs appreciated. Seen multiple times during the day. Early in the morning on examination patient is on BiPAP, somnolent, waking up on need to deep palpation. Repeat examination patient is a lot more awake and alert on 3 L nasal cannula, feeling slightly short of breath. Patient states he is feeling short of breath along with palpitations. She has been having shortness of breath and palpitations going on for around 6 weeks. She lives by herself. Does not take any medications at baseline. Does not follow-up with any primary care provider. Does not know if has been formally diagnosed with COPD. Has never taken inhalers in the past. On goals of care discussion she wants her son-in-law Mr. Hope and his to make her medical decisions when she is not able to make for herself. She would not want any kind of life sustaining or prolonging ailments if needed. She does not want intubation or chest compressions. CODE STATUS changed to DNR/DNI. On review of chart patient's heart rate has remained over 110s. She is been off Levophed since early in the morning. Mean arterial pressures have remained over 72. Urine output overnight up to 300. Otherwise has remained afebrile. Medications: Reviewed: Yes Vitals/I&O/Wt Last Vital Signs Temp 99.1 F 10/19/21 08:00 Pulse 150 H 10/19/21 12:18 Resp 21 H 10/19/21 09:30 BP 86/64 10/19/21 09:30 Pulse Ox 95 10/19/21 10:49 10/18/21 10/19/21 10/19/21 22:59 06:59 14:59 Intake Total 822.572 / 2826.572 1450 / 4276.572 Output Total 350 / 350 300 / 650 100 / 100 Balance 472.572 / 2476.572 1150 / 3626.572 -100 / -100 Weight last 48 hrs Weight 63.673 kg Weight 61.49 kg Weight 58.967 kg Physical Exam Narrative: General: AOx3, acute distress due to shortness of breath, examined both on BiPAP on 3 L nasal cannula HEENT: PERRLA, pupils bilaterally equal and reactive Chest: Bilateral bronchial breath sounds, rhonchi all over the lung albright, coarsening of the lung albright, pigeon chest type chest wall deformity CVS: S1-S2 regular, no murmurs, no tachycardia, no gallops, no rubs Abdomen: Soft, nontender, no organomegaly, bowel sounds present Neuro: No focal deficits, no facial deformity, AO x3, power 5/5 in all limbs Urinary Catheter Management: Simpson: Cath Placed During This Visit: yes Reason for Continuing Indwelling Catheter: Accurate Measurement of Urinary Output in Critically Ill Patients Urinary Catheter Date of Insertion: 10/18/21 Urinary Catheter Time of Insertion: 00:00 Data : 10/19/21 04:29 10/19/21 04:29 Micro: Microbiology 10/18/21 13:20 Blood Culture - Preliminary Blood NEGATIVE TO DATE 10/18/21 13:10 Blood Culture - Preliminary Blood NEGATIVE TO DATE 10/18/21 22:16 MRSA Culture - Final Nose 10/18/21 01:15 Urine Culture - Preliminary Urine Catheterized Gram Negative Rods A&P Assessment and plan (1) Atrial fibrillation with RVR: Status: Acute (2) Altered mental status: Status: Acute (3) Severe sepsis: Status: Acute (4) UTI (urinary tract infection): Status: Acute (5) Subclinical hyperthyroidism: Status: Acute (6) Thyroid mass: Status: Acute (7) Renal insufficiency: Status: Acute Plan 72-year-old female with no significant past medical history was admitted to the hospital for encephalopathy found to be in sepsis with hypotension and atrial fibrillation with rapid ventricular response. Altered mental status: Most likely secondary to combination of hypercapnia, metabolic encephalopathy from sepsis. Resolving. Patient is AOx3 of BiPAP. Severe sepsis: Present on admission. Shock is resolved. Patient is not on Levophed anymore. Most likely secondary to UTI. Keep mean arterial pressure over 65. Levophed if needed. Follow-up blood culture, urine culture. Urine culture growing gram-negative rods. Check MRSA swab. For now continue with Zosyn and vancomycin. Check random vancomycin level and dose vancomycin accordingly. Will change antibiotics as per culture results. CT chest abdomen pelvis without contrast. Atrial fibrillation with rapid ventricular response: Could be secondary to subclinical hyperthyroidism. Switch from amiodarone drip to amiodarone 400 mg twice daily. Digoxin levels. Start on oral digoxin 125 mcg daily. Blood pressure is better. Start on IV Cardizem followed by Cardizem drip. Titrate as per heart rate and blood pressure. High Isidoro vas score:. Continue with Lovenox 1 mg/kg body weight every 12 hourly for now. Acute kidney injury: Continue with gentle IV hydration. Resolved. Medical reconciliation done for nephrotoxic drugs. Subclinical hyperthyroidism: Low TSH. Free T3, free T4 normal. Thyroid ultrasound concerning for left complex nodule. Possibility of toxic adenoma versus goiter. Given advanced age, uncontrolled atrial fibrillation with rapid ventricular response for now we will start treatment with methimazole 5 mg oral daily. Will need to repeat thyroid profile within next 6 weeks for further up titration of medication. Hypercapnic respiratory failure: Repeat ABG. Most likely undiagnosed COPD. Continue with BiPAP ventilation for now. Full liquid diet. Start on Solu-Medrol 40 mg every 6 hourly after 125 mg stat 1 dose. Ipratropium, Xopenex every 6 hours on budesonide twice daily. CODE STATUS: Discussed in detail with the patient. DNR/DNI. Lovenox will suffice for DVT prophylaxis. Protonix for PUD prophylaxis. Full liquid diet. Attestations Medical Necessity Statement*: Requires further hospitalization for management of severe sepsis, atrial fibrillation with rapid ventricular response in setting of hypercapnic respiratory failure and subclinical hyperthyroidism Critical Care Time: The high probability of a clinically significant, sudden or life threatening deterioration of the patient's [cardiology, pulmonary, renal system(s) required my full and direct attention, intervention and personal management. The critical care time is as shown. This time is in addition to time spent performing any reported procedures but includes the following: [x] Data and vital sign review and interpretation [x] Patient assessment, examination and intervention [x] Documentation [x] Medication orders and management Critical Care Time (min): 90 Coding Level of Care Code Acute Accounts Payable Specialist for g Fwd Diagnoses Atrial fibrillation with RVR I48.91 Altered mental status R41.82 Severe sepsis A41.9; R65.20 UTI (urinary tract infection) N39.0 Subclinical hyperthyroidism E05.90 Thyroid mass E07.9 Renal insufficiency N28.9
--- NOTE | 2021-10-19 14:01 | PC.NURSE ---
Patient was very lethargic when nurse came onto shift. Patient started to become more alert around 11am and was able to come off of bipap. Patient remained off of bipap until 2pm. Nurse observed an increase work of breathing tachypnea (RR of 40), and accessory muscle use. Patient was put back onto bipap and Patient's repiratory rate dropped to 20, and accesory muscle use no longer observed.
--- NOTE | 2021-10-19 14:09 | CTR_ITS ---
PROCEDURE INFORMATION: Exam: CT Chest Without Contrast; Diagnostic Exam date and time: 10/19/2021 3:05 PM Age: 80 years old Clinical indication: Condition or disease; Other: Copd; Lung condition and disease; Additional info: Sepsis, UTI, rodney, hypercapnic respiratory faliure, , advanced copd TECHNIQUE: Imaging protocol: Diagnostic computed tomography of the chest without contrast. Radiation optimization: All CT scans at this facility use at least one of these dose optimization techniques: automated exposure control; mA and/or kV adjustment per patient size (includes targeted exams where dose is matched to clinical indication); or iterative reconstruction. COMPARISON: CT chest wo con [id number] 10/17/2021 10:32 PM RADIATION DOSE METRICS: Total DLP (mGy-cm): 1084.47 FINDINGS: Thyroid: Enlarged left thyroid lobe and is replaced by a heterogeneous solid partially calcified nodule, measuring about 3.4 x 3.1 cm. Lungs: Calcified right upper lobe pulmonary granuloma. Pleural spaces: Small right pleural effusion with small adjacent consolidation, likely compressive atelectasis however follow-up may be considered if there is a concern for developing pneumonia. There is also small left pleural effusion with adjacent left lower lobe consolidation. This may represent compressive atelectasis versus pneumonia and follow-up should also be obtained. The overall appearance is unchanged. Heart: Uiei-em-oazogodu cardiomegaly with coronary calcification. Lymph nodes: No enlarged lymph nodes. Vasculature: Moderate dilatation of main pulmonary artery at 4 cm. Clinical correlation for pulmonary hypertension should be obtained. Mild ascending aortic dilatation at 4.2 cm. There is pulmonary vascular redistribution suggesting element of mild vascular congestion. Diaphragm: The right diaphragm is in normal position. There is markedly elevated left hemidiaphragm and correlation with diaphragmatic paralysis should be considered. Bones/joints: Several images are degraded due to external streak artifacts arising from patient's arm(s). Osteopenia. Multilevel moderate-severe compression deformities of thoracic and lumbar vertebral bodies with no subluxation, unchanged. Small to moderate retropulsed elements are noted at T12 through L2 with [id number] central spinal canal narrowing. Although these findings may be chronic, clinical correlation/comparison prior study should be considered. Soft tissues: No acute findings. Other findings: Several images are degraded by artifacts. COMMENTS: Consistent with the [employer]'s Incidental Findings Committee white paper (J Am Stefania Radiol 2015): In patients aged 35 years and older with an incidental thyroid nodule equal to or greater than 1.[address], MRI or extrathyroidal US, further evaluation with dedicated thyroid US is recommended for patients with normal life expectancy and without comorbidities. For smaller nodules without suspicious features, no further evaluation or follow up is recommended. PROCEDURE INFORMATION: Exam: CT Abdomen And Pelvis Without Contrast Exam date and time: 10/19/2021 3:05 PM Age: 80 years old Clinical indication: Condition or disease; Other: Copd; Lung condition and disease; Additional info: Sepsis, UTI, rodney, hypercapnic respiratory faliure, , advanced copd TECHNIQUE: Imaging protocol: Computed tomography of the abdomen and pelvis without contrast. Radiation optimization: All CT scans at this facility use at least one of these dose optimization techniques: automated exposure control; mA and/or kV adjustment per patient size (includes targeted exams where dose is matched to clinical indication); or iterative reconstruction. COMPARISON: US abdomen limited [id number] 10/18/2021 2:57 AM RADIATION DOSE METRICS: Total DLP (mGy-cm): 1084.47 FINDINGS: Liver: See Gallbladder and bile ducts finding. Gallbladder and bile ducts: There is an ovoid structure with thick calcified rim in the right lower quadrant, measuring 2.9 x 2.7 by 3.4 cm, most likely representing a a gallstone. Unclear if this is located within the low lying gallbladder fundus or within the bowel lumen in the setting of gallstone ileus/obstruction. No obvious intrahepatic or extrahepatic bile duct dilatation. Another Pancreas: Normal. No ductal dilation. Spleen: Normal. No splenomegaly. Adrenal glands: Normal. No mass. Kidneys and ureters: Hypodense left renal lesions, likely simple cysts, measuring up to 2.2 cm. Stomach and bowel: There is mild diffuse small bowel distension with maximal anterior small bowel luminal dilatation of 3.2 cm. No severe colonic luminal dilatation is otherwise identified and therefore colonic obstruction is unlikely. However small bowel ileus/early small bowel obstruction cannot be excluded in this setting. There is a small amount of high-density stool within the cecum. Small amount of solid stool and air is seen in the distal colon and rectum. Appendix: No evidence of appendicitis. Normal appendix is not clearly seen however. Intraperitoneal space: Small amount of pelvic ascites. No obvious large loculated drainable abscess is otherwise identified. No obvious free air. Vasculature: No abdominal aortic aneurysm. Lymph nodes: No enlarged lymph nodes. Urinary bladder: Nondistended with Simpson balloon in place. Reproductive: The uterus is retroverted with several calcified subserosal and intramural myomas, measuring up to 2.7 cm. No obvious adnexal region masses. Reproductive: Unremarkable as visualized. Bones/joints: Several images are degraded due to external streak artifacts arising from patient's arm(s). Osteopenia. Multilevel moderate-severe compression deformities of thoracic and lumbar vertebral bodies with no subluxation, unchanged. Small to moderate retropulsed elements are noted at T12 through L2 with [id number] central spinal canal narrowing. Although these findings may be chronic, clinical correlation/comparison older study should be considered. Soft tissues: There is moderate generalized soft tissue anasarca/third-spacing. Scattered small foci of superficial subcutaneous soft tissue air is noted in the lateral aspect of left lower quadrant/upper hip region. No regional drainable fluid collection or large mass. Findings may be related to recent subcutaneous injection however follow-up should be obtained to exclude development of gas-forming infectious process. The most lateral aspects of the iliac/gluteal soft tissue are partially excluded. Other findings: Several images are degraded by motion. CT/CT chest abd pel wo con IMPRESSION: 1. Comparison chest CT 10/17/2021. Relatively stable appearance with markedly elevated left hemidiaphragm with bibasilar consolidative changes and pleural effusions as described above. 2. Several other findings are also stable. No acute findings otherwise. Please see previous CT exam report 2 days earlier for discussion of thyroid findings. IMPRESSION: 1. Exam very limited due to severe motion and lack of contrast. 2. A gallstone is noted in the right lower quadrant. Unclear if this is within the low lying gallbladder fundus or a stone within the bowel lumen in the setting of gallstone ileus/obstruction. Sonographic correlation may be helpful. There is mild diffuse small bowel distention. No severe colonic obstruction is otherwise identified. 3. No free air or obvious pneumatosis. Small pelvic ascites. 4. Soft tissue and vertebral findings. See discussion above. 5. Other nonacute findings as described. COMMENTS: Consistent with the [employer]'s Incidental Findings Committee white paper (J Am Stefania Radiol 2018): Any incidental renal lesion less than 1 cm or classified as too small to characterize, or any incidental cystic renal lesion characterized as simple-appearing, is likely benign. No follow-up imaging is recommended for these lesions per consensus recommendations based on imaging criteria.
[2021-10-19] MEDS: methIMAzole 5 MG Tablet PO (14:54)
[2021-10-19] MEDS: ipratropium 0.5 mg/2.5 mL Neb INHALATION ×2 (15:47→20:13)
[2021-10-19] MEDS: levalbuterol 0.63 mg/3 mL Neb INHALATION ×2 (15:47→20:12)
--- NOTE | 2021-10-19 19:11 | PC.NURSE ---
SHift SUmmary: Uneventful shift. Patient rested in bed throughout the day. Was given occasional breaks form bipap, but requires to be put back on due to tachypnea and increased work of breathing. AMiodarone drip was discontinued and changed to cardizem drip. Levophed has been turned off. Patient has had 375 mL of urine output and 1 bowel movement. Patient is alert and oriented to person, place, time, and situation, though she is lethargic. Dr feliciano would like us to avoid benzodiazepams as she becomes very lethargic afterwards. Precedex is available in the MAR if needed.
[2021-10-19] MEDS: budesonide 0.5 mg/2 mL Neb INHALATION (20:12)
[2021-10-19] MEDS: dilTIAZem 30 mg Tablet PO (21:19)
[2021-10-20] VITALS (96 sets, daily range): BP systolic 69–120; BP diastolic 45–82; PULSE 53–117; RESP 16–54; TEMP 36.1–37.7; O2SAT 81–97
[2021-10-20] MEDS: sodium chloride 0.9% 1,000 ML 50 ML IV ×2 (00:25→21:16)
[2021-10-20] MEDS: piperacillin-tazobactam 3.375 GM in sodium chloride 0.9% (plus) 50 ML IV ×3 (00:26→16:48)
[2021-10-20] MEDS: levalbuterol 0.63 mg/3 mL Neb INHALATION ×4 (02:26→20:15)
[2021-10-20 04:08] LABS: Arterial Blood Gas Hematocrit 41.4 % (37-47); Base Excess ABG -1.3 mmol/L (-2.0-2.0); Blood Gas Allen Test Pos; Blood Gas Sample Site Radial, right; Blood Gas Sample Type Arterial; Carboxyhemoglobin 0.8 %THgb (0.4-20.1); HCO3 ABG 29.5 mmol/L (22-26); HGB O2 Sat 89.9 % (95-100); Ionized Calcium Level - ABG 1.2 mmol/L (1.1-1.4); Methemoglobin 0.8 % (0.4-1.5); Oxygen Device NC; Oxygen Saturation ABG 91.4; PO2 ABG 68.6 mmHg (80.0-100.0); Total Hemoglobin 13.5 g/dL (12-16)
[2021-10-20 04:11] LABS: ABG PH Result 7.17 (7.35-7.45)
[2021-10-20 04:58] LABS: Hematocrit 46.4 % (37.0-47.0); Hemoglobin 13.7 g/dL (11.5-15.3); Lymphocytes # 0.1 10^3/uL (0.8-4.8); Lymphocytes % 2.1 %; Mean Corpuscular HGB Conc 29.5 g/dL (30.0-36.0); Mean Corpuscular Hemoglobin 27.9 pg (28.0-34.0); Mean Corpuscular Volume 94.5 fl (81-99); Mean Platelet Volume 9.4 fL (7.4-10.4); Monocytes % 0.6 %; Neutrophils # 6.49 10^3/uL (1.8-7.7); Nucleated Red Blood Cells % 0 %; Platelet Count 143 10^3/cmm (130-400); Red Blood Count 4.91 10^6/uL (4.1-5.3); Red Cell Distribution Width 14.6 % (12.1-15.1); White Blood Count 6.7 10^3/uL (4.0-10.0)
[2021-10-20 05:22] LABS: Estmated Average Glucose 108; Hemoglobin A1C 5.4 % (4.0-6.0)
[2021-10-20 05:34] LABS: Alanine Aminotransferase 31 U/L (0-33); Albumin Level 3.4 g/dL (3.5-5.2); Alkaline Phosphatase 84 IU/L (35-105); Blood Urea Nitrogen 50 mg/dL (8-23); Calcium 7.7 mg/dL (8.5-10.5); Carbon Dioxide 21 mmol/L (22-29); Chloride 103 mmol/L (98-107); Globulin 2.1 g/dL (1.3-4.6); Glucose 127 mg/dL (65-115); Osmolality Calculated 299 mOsm/kg (285-295); Sodium 137 mmol/L (136-145); Total Bilirubin 0.9 mg/dL (0.15-1.2); Total Protein 5.5 g/dL (6.6-8.7)
[2021-10-20 05:46] LABS: Anion Gap 17.4 (5-19); Aspartate Amino Transferase 21 U/L (0-32); Potassium 4.4 mmol/L (3.5-5.1)
[2021-10-20] MEDS: ipratropium 0.5 mg/2.5 mL Neb INHALATION ×3 (08:32→20:15)
[2021-10-20] MEDS: budesonide 0.5 mg/2 mL Neb INHALATION ×2 (08:32→20:15)
--- NOTE | 2021-10-20 09:02 | PC.SOCIAL ---
IMM update IMM updated with patient. Verbalized an understanding. Copy PG 2 provided. Initialled, dated, timed, and placed in chart.
--- NOTE | 2021-10-20 09:41 | PC.CHAP ---
Pastoral Care Encounter/Spiritual Assessment Type of Contact [] Declined personnel supervisor visit [] Patient/Family/Request visit [] Outpatient visit [] Follow-up visit [] Physician referral [] Code/Alert [x] Routine visit [] Staff referral [] Actively dying [] Patient sleeping [] Family support [] [] Out of room [] Palliative care [] [] Receiving care in room [] Pre-surgical visit [] Trauma [] Long length of stay [x] ICU visit [] Other: Relational/Emotional Strength [] Patient feels connected with others/family/visitors/staff [] Distress [] Loneliness/isolation [] Abandonment Spirituality of Patient [] Person of Domi [] Attends Hoahaoism of their Domi [] Believes in Prayer [] Reads Bible or Confucianist materials [] There are Spiritual issues to be addressed Grain Elevator Superintendent Interventions [x] Prayer [x] Active listening [x] Non-anxious presence [x] Spiritual/emotional support [] Crisis/trauma care [] Spiritual counseling [] Bereavement support [] Provided bereavement packet [] Provided Bible/devotional materials [] Provided toy/stuffed animal, coloring book to patient or family member [] Provided Communion [] Anointing/[place] [] Salvation [x] Completed spiritual assessment [] Other: Impact on Illness or Injury [] Angry [] Fearful [] Anxious [] Often cries [] Exhaustion [] Unable to work [] Unable to attend shinto [] Unable to walk/stand [] Unable to read [] Unable to drive [] Unable to eat/drink [] Unable to sleep [] Unable to be with family [] Patient intubated [] Other: Summary patient on oxygen.,.very soft spoken.. seems weak Time spent with patient 5 min
[2021-10-20] MEDS: pantoprazole 40 mg SDV IVP (09:59)
[2021-10-20] MEDS: dilTIAZem 30 mg Tablet PO ×2 (10:00→10:17)
[2021-10-20] MEDS: digoxin 125 mcg Tablet PO (10:00)
[2021-10-20] MEDS: methIMAzole 5 MG Tablet PO (10:00)
[2021-10-20] MEDS: amiodarone 200 mg Tablet 400 MG PO ×2 (10:11→18:06)
--- NOTE | 2021-10-20 10:25 | P.PN_ITS ---
Subjective Subjective: Patient is alert. Earlier today her ABG showed pH of 7.1 with PCO2 of 81. On BiPAP. On cardizem gtt for rate control Vitals/I&O/Wt Last Vital Signs Temp 99.5 F 10/19/21 17:00 Pulse 109 H 10/20/21 10:00 Resp 28 H 10/20/21 08:32 BP 113/66 10/20/21 06:00 Pulse Ox 92 10/20/21 08:32 10/19/21 10/20/21 10/20/21 22:59 06:59 14:59 Intake Total 1993.167 / 2240.478 50 / 2290.478 220 / 220 Output Total 425 / 525 250 / 775 Balance 1568.167 / 1715.478 -200 / 1515.478 220 / 220 Weight last 48 hrs Weight 159 lb 1.6 oz Weight 140 lb 6 oz Physical Exam Narrative: GENERAL: Patient is alert NECK: No jugular vein distension. [] HEENT: No cyanosis. No icterus. No pallor. [] HEART: Tachycardic, irregularly irregular LUNGS: Mild crackles, decreased heart sounds ABDOMEN: Soft CENTRAL NERVOUS SYSTEM: Grossly nonfocal. [] EXTREMITIES: 1-2+ pitting edema bilaterally [] Urinary Catheter Management: Simpson: Cath Placed During This Visit: yes Reason for Continuing Indwelling Catheter: Accurate Measurement of Urinary O utput in Critically Ill Patients Urinary Catheter Date of Insertion: 10/18/21 Urinary Catheter Time of Insertion: 00:00 Data : 10/21/21 06:34 10/21/21 06:30 Micro: Microbiology 10/18/21 01:15 Urine Culture - Final Urine Catheterized Escherichia coli 10/18/21 13:20 Blood Culture - Preliminary Blood NEGATIVE TO DATE 10/18/21 13:10 Blood Culture - Preliminary Blood NEGATIVE TO DATE 10/18/21 22:16 MRSA Culture - Final Nose A&P Assessment and plan (1) Shock: Status: Acute (2) Atrial fibrillation with RVR: Status: Acute (3) Acute respiratory failure: Status: Acute (4) UTI (urinary tract infection): Status: Acute (5) Altered mental status: Status: Acute (6) Renal insufficiency: Status: Acute (7) Hyperammonemia: Status: Acute (8) Hyperkalemia: Status: Acute Plan Patient denies any prior cardiac history and is here for altered mental status, shortness of breath and was found to be in A. fib with RVR. Likely etiology of respiratory failure is COPD. Also had sepsis from UTI. Her heart rates are uncontrolled. Patient has been put on digoxin.Amiodarone switched to PO. On cardizem gtt now. ECHO done. ECHO is of limited quality but has normal LV systolic function Patient's chest x-ray shows significantly elevated left diaphragm. No plans for cardioversion at this time Thank you for involving us with care of this patient. We will continue to follow. Please call with questions. Attestations Medical Necessity Statement*: Care expected to cross 2 midnights. Coding Level of Care Code Acute Retail Event Assistant for Ahmet Fwtracey Diagnoses Shock R57.9 Atrial fibrillation with RVR I48.91 Acute respiratory failure J96.00 UTI (urinary tract infection) N39.0 Altered mental status R41.82 Renal insufficiency N28.9 Hyperammonemia E72.20 Hyperkalemia E87.5
[2021-10-20] MEDS: FUROsemide 10 mg/mL SDV 2mL 20 MG IVP (11:45)
[2021-10-20] MEDS: metoclopramide 5 mg/mL SDV 2 mL IVP ×3 (11:47→23:44)
[2021-10-20] MEDS: enoxaparin 60 mg/0.6 mL Syringe SUBCUT ×2 (11:49→23:43)
[2021-10-20 12:11] LABS: ABG PH Result 7.27 (7.35-7.45); Alveolar-Arterial Oxygen Gradi 10.6 mmHg (5-10); Arterial Blood Gas Hematocrit 40.4 % (37-47); Base Excess ABG 2.9 mmol/L (-2.0-2.0); Blood Gas Allen Test Pos; Blood Gas Operator Identificat GD; Blood Gas Sample Site Radial, left; Blood Gas Sample Type Arterial; HCO3 ABG 31.7 mmol/L (22-26); HGB O2 Sat 89.7 % (95-100); Ionized Calcium Level - ABG 1.1 mmol/L (1.1-1.4); Methemoglobin 0.8 % (0.4-1.5); Oxygen Device NC; Oxygen Saturation ABG 91.3; PO2 ABG 63.4 mmHg (80.0-100.0); Potassium Level - ABG 3.7 mmol/L (3.5-5.0); Total Hemoglobin 13.2 g/dL (12-16)
[2021-10-20 12:27] LABS: T3 Total 142 ng/dL (76-181)
[2021-10-20 12:38] LABS: Vancomycin Trough 9.9 ug/mL (10-15)
[2021-10-20 13:13] LABS: Thyroglobulin AB <1 IU/mL (< or = 1)
[2021-10-20] MEDS: vancomycin 1,000 MG in sodium chloride 0.9% 250 ML 250 MG IV (14:02)
--- NOTE | 2021-10-20 15:10 | PC.NURSE ---
Patient requested to get off of the Bipap. NUrse explained to the patient reasoning for the need to keep the bi pap on. DIscussed rising CO2 Levels an decreasing pH and the significance of it. Patient states that they still do not want to continue wit the bi pap. Nurse explained that if we do not do the bi pap to keep the CO2 levels down and pH wher eit needs to be that it will affect her ability to breath and would likely lead to her passing away. Nurse also explained that Dr Chandler, a farm loan representative has been consulted and he may be able to offer treatment options. The patient still wishes to discontinue the bipap and be allowed to pass away. She no longer wants to continue care and live the way she has been. Nurse alertd Dr feliciano to her wishes. NUrse removed bipap and placed on nasal cannula. Nurse informed patient of her ability to change her mind. Patient is alert and oriented to person, place, time, and situation.
[2021-10-20 16:32] LABS: Thyroid Peroxidase Antobodies 1 IU/mL (<9)
[2021-10-20] MEDS: dilTIAZem 60 mg Tablet PO ×2 (16:47→21:15)
--- NOTE | 2021-10-20 17:09 | PM.PN ---
Subjective Subjective: Seen multiple times during the day. Overnight as per the nurse patient was on BiPAP intermittently. Today morning on ABG patient's pH was 7.1 with PCO2 of 81. On examination patient was on nasal cannula of 5 saturating 92%, AOx3 able to have complete conversation. Patient was visibly short of breath. She states she has been less short of breath and feeling the same day with breathing like she is breathing right now for many years and has been like this for quite some time. Denies of having any nausea vomiting, headache. We discussed that going forward patient would need to be on BiPAP intermittently to prevent from hypercapnia. Patient verbalized understanding and for now would want to continue with BiPAP ventilation intermittently. She understands she might need to be on BiPAP on and off throughout her life. Vitals/I&O/Wt Last Vital Signs Temp 96.9 F L 10/20/21 08:00 Pulse 110 H 10/20/21 15:52 Resp 28 H 10/20/21 15:00 BP 113/69 10/20/21 15:00 Pulse Ox 92 10/20/21 15:52 10/20/21 10/20/21 10/20/21 06:59 14:59 22:59 Intake Total 50 / 2290.478 270 / 270 Output Total 250 / 775 Balance -200 / 1515.478 270 / 270 Weight last 48 hrs Weight 72.167 kg Weight 63.673 kg Physical Exam Narrative: General: AOx3, acute distress due to shortness of breath, examined both on BiPAP on 3 L nasal cannula HEENT: PERRLA, pupils bilaterally equal and reactive Chest: Bilateral bronchial breath sounds, rhonchi all over the lung albright, coarsening of the lung albright, pigeon chest type chest wall deformity CVS: S1-S2 regular, no murmurs, no tachycardia, no gallops, no rubs Abdomen: Soft, nontender, no organomegaly, bowel sounds present Neuro: No focal deficits, no facial deformity, AO x3, power 5/5 in all limbs Urinary Catheter Management: Simpson: Cath Placed During This Visit: yes Reason for Continuing Indwelling Catheter: Accurate Measurement of Urinary Output in Critically Ill Patients Urinary Catheter Date of Insertion: 10/18/21 Urinary Catheter Time of Insertion: 00:00 Data : 10/20/21 04:15 10/20/21 04:15 Micro: Microbiology 10/18/21 01:15 Urine Culture - Final Urine Catheterized Escherichia coli 10/18/21 13:20 Blood Culture - Preliminary Blood NEGATIVE TO DATE 10/18/21 13:10 Blood Culture - Preliminary Blood NEGATIVE TO DATE 10/18/21 22:16 MRSA Culture - Final Nose A&P Assessment and plan (1) Atrial fibrillation with RVR: Status: Acute (2) Altered mental status: Status: Acute (3) Severe sepsis: Status: Acute (4) UTI (urinary tract infection): Status: Acute (5) Subclinical hyperthyroidism: Status: Acute (6) Thyroid mass: Status: Acute (7) Renal insufficiency: Status: Acute Plan 72-year-old female with no significant past medical history was admitted to the hospital for encephalopathy found to be in sepsis with hypotension and atrial fibrillation with rapid ventricular response. Altered mental status: Most likely secondary to combination of hypercapnia, metabolic encephalopathy from sepsis. Resolving. Patient is AOx3 of BiPAP. Hypercapnic respiratory failure: Repeat ABG. Most likely undiagnosed COPD. Continue with BiPAP ventilation for now. Full liquid diet. Start on Solu-Medrol 40 mg every 6 hourly after 125 mg stat 1 dose. Ipratropium, Xopenex every 6 hours on budesonide twice daily. Severe sepsis: Present on admission. Shock is resolved. Patient is not on Levophed anymore. Most likely secondary to UTI. Keep mean arterial pressure over 65. Levophed if needed. Follow-up blood culture, urine culture. Urine culture growing gram-negative rods. Check MRSA swab. For now continue with Zosyn Atrial fibrillation with rapid ventricular response: Could be secondary to subclinical hyperthyroidism. Switch from amiodarone drip to amiodarone 400 mg twice daily. Digoxin levels. Start on oral digoxin 125 mcg daily. Blood pressure is better. Start on IV Cardizem followed by Cardizem drip. Titrate as per heart rate and blood pressure. High Isidoro vas score:. Continue with Lovenox 1 mg/kg body weight every 12 hourly for now. Acute kidney injury: Continue with gentle IV hydration. Resolved. Medical reconciliation done for nephrotoxic drugs. Subclinical hyperthyroidism: Low TSH. Free T3, free T4 normal. Thyroid ultrasound concerning for left complex nodule. Possibility of toxic adenoma versus goiter. Given advanced age, uncontrolled atrial fibrillation with rapid ventricular response for now we will start treatment with methimazole 5 mg oral daily. Will need to repeat thyroid profile within next 6 weeks for further up titration of medication. CODE STATUS: Discussed in detail with the patient. DNR/DNI. Lovenox will suffice for DVT prophylaxis. Protonix for PUD prophylaxis. Full liquid diet. Plan for day: Increase Cardizem to 60 mg every 6 hourly. Add metoprolol 25 mg twice daily. Blood pressure is better. Wean off Cardizem accordingly. Continue with amiodarone. Recheck digoxin levels in a.m. MRSA swab negative can stop vancomycin. Continue Zosyn to finish 5-day course for UTI. Physical therapy evaluation. Continue with methimazole. Continue with Solu-Medrol 40 mg IV every 6 hourly. We will plan for pulmonary consultation in a.m. Attestations Medical Necessity Statement*: Requires further hospitalization for management of hypercapnic respiratory failure secondary to COPD/restrictive lung disease, atrial fibrillation with rapid ventricular response Critical Care Time: The high probability of a clinically significant, sudden or life threatening deterioration of the patient's [pulmonary, cardiac, endocrine system(s) required my full and direct attention, intervention and personal management. The critical care time is as shown. This time is in addition to time spent performing any reported procedures but includes the following: [x] Data and vital sign review and interpretation [x] Patient assessment, examination and intervention [x] Documentation [x] Medication orders and management Critical Care Time (min): 60 Coding Level of Care Code Acute Sql Programmer for [facility] Fwd Diagnoses Atrial fibrillation with RVR I48.91 Altered mental status R41.82 Severe sepsis A41.9; R65.20 UTI (urinary tract infection) N39.0 Subclinical hyperthyroidism E05.90 Thyroid mass E07.9 Renal insufficiency N28.9
--- NOTE | 2021-10-20 19:19 | PC.NURSE ---
Dr Gibson came to discuss plan of care with the patient. THe patient has changed her mind and wants to continue receiving care and go back on the bipap for another few days to see if she can compensate.
--- NOTE | 2021-10-20 19:43 | PC.NURSE ---
Shift SUmmary: uneventful shift. Patient rested in bed throughout the day, she considered going to comfort care but had changed her mind. Total urine output has been 400 mL. Patient has agreed to stay on bipap throughout the night.
[2021-10-20] MEDS: metoprolol tartrate 25 mg Tablet PO (21:15)
[2021-10-20] MEDS: dexmedeTOMIDine 0.9 % NaCL 400 MCG/100 ML PREMIX IV (21:58)
[2021-10-21] VITALS (54 sets, daily range): BP systolic 95–127; BP diastolic 54–79; PULSE 63–111; RESP 18–40; TEMP 36.8; O2SAT 86–96
[2021-10-21] MEDS: piperacillin-tazobactam 3.375 GM in sodium chloride 0.9% (plus) 50 ML IV ×3 (01:19→15:42)
[2021-10-21] MEDS: levalbuterol 0.63 mg/3 mL Neb INHALATION ×4 (02:59→20:22)
[2021-10-21] MEDS: metoclopramide 5 mg/mL SDV 2 mL IVP ×2 (04:48→23:54)
[2021-10-21 07:04] LABS: Basophils % 0.1 %; Hematocrit 43.5 % (37.0-47.0); Hemoglobin 12.7 g/dL (11.5-15.3); Lymphocytes # 0.1 10^3/uL (0.8-4.8); Lymphocytes % 1.5 %; Mean Corpuscular HGB Conc 29.2 g/dL (30.0-36.0); Mean Corpuscular Hemoglobin 28.3 pg (28.0-34.0); Mean Corpuscular Volume 96.9 fl (81-99); Mean Platelet Volume 9.5 fL (7.4-10.4); Monocytes # 0.2 10^3/uL (0.2-0.9); Monocytes % 1.9 %; Neutrophils # 8.25 10^3/uL (1.8-7.7); Neutrophils % 95.7 %; Nucleated Red Blood Cells # 0.1 /100WBC; Nucleated Red Blood Cells % 0.6 %; Platelet Count 165 10^3/cmm (130-400); Red Blood Count 4.49 10^6/uL (4.1-5.3); Red Cell Distribution Width 14.7 % (12.1-15.1); White Blood Count 8.6 10^3/uL (4.0-10.0)
[2021-10-21 07:16] LABS: Alanine Aminotransferase 32 U/L (0-33); Albumin Level 3.7 g/dL (3.5-5.2); Alkaline Phosphatase 80 IU/L (35-105); Aspartate Amino Transferase 19 U/L (0-32); Blood Urea Nitrogen 46 mg/dL (8-23); Calcium 7.9 mg/dL (8.5-10.5); Carbon Dioxide 24 mmol/L (22-29); Chloride 100 mmol/L (98-107); Digoxin 1.1 ng/mL (0.6-1.2); Globulin 2.4 g/dL (1.3-4.6); Glucose 161 mg/dL (65-115); Osmolality Calculated 299 mOsm/kg (285-295); Sodium 137 mmol/L (136-145); Total Protein 6.1 g/dL (6.6-8.7)
[2021-10-21 07:19] LABS: Anion Gap 16.8 (5-19); Potassium 3.8 mmol/L (3.5-5.1)
[2021-10-21] MEDS: ipratropium 0.5 mg/2.5 mL Neb INHALATION ×3 (08:33→20:22)
[2021-10-21] MEDS: budesonide 0.5 mg/2 mL Neb INHALATION ×2 (08:33→20:22)
[2021-10-21] MEDS: pantoprazole 40 mg SDV IVP (09:12)
[2021-10-21] MEDS: digoxin 125 mcg Tablet PO (09:12)
[2021-10-21] MEDS: dilTIAZem 60 mg Tablet PO ×3 (09:12→20:59)
[2021-10-21] MEDS: methIMAzole 5 MG Tablet PO (09:12)
[2021-10-21] MEDS: amiodarone 200 mg Tablet 400 MG PO ×2 (09:12→16:30)
--- NOTE | 2021-10-21 09:54 | P.PN_ITS ---
Subjective Subjective: Heart rates are better controlled. Still short of breath. Vitals/I&O/Wt Last Vital Signs Temp 98.2 F 10/21/21 07:30 Pulse 94 10/21/21 09:12 Resp 23 H 10/21/21 08:39 BP 100/65 10/21/21 08:00 Pulse Ox 94 10/21/21 08:39 10/20/21 10/21/21 10/21/21 22:59 06:59 14:59 Intake Total 1556.772 / 1826.772 50 / 1876.772 236 / 236 Output Total 400 / 400 180 / 580 Balance 1156.772 / 1426.772 -130 / 1296.772 236 / 236 Weight last 48 hrs Weight 165 lb 1.6 oz Weight 159 lb 1.6 oz Physical Exam Narrative: GENERAL: Patient is alert NECK: No jugular vein distension. [] HEENT: No cyanosis. No icterus. No pallor. [] HEART: Tachycardic, irregularly irregular LUNGS: Mild crackles, decreased heart sounds ABDOMEN: Soft CENTRAL NERVOUS SYSTEM: Grossly nonfocal. [] EXTREMITIES: 1-2+ pitting edema bilaterally [] Urinary Catheter Management: Simpson: Cath Placed During This Visit: yes Reason for Continuing Indwelling Catheter: Accurate Measurement of Urinary Output in Critically Ill Patients Urinary Catheter Date of Insertion: 10/18/21 Urinary Catheter Time of Insertion: 00:00 Data : 10/21/21 06:34 10/21/21 06:30 Micro: Microbiology 10/18/21 01:15 Urine Culture - Final Urine Catheterized Escherichia coli A&P Assessment and plan (1) Shock: Status: Acute (2) Atrial fibrillation with RVR: Status: Acute (3) Acute respiratory failure: Status: Acute (4) UTI (urinary tract infection): Status: Acute (5) Altered mental status: Status: Acute (6) Renal insufficiency: Status: Acute (7) Hyperammonemia: Status: Acute (8) Hyperkalemia: Status: Acute Plan Patient denies any prior cardiac history and is here for altered mental status, shortness of breath and was found to be in A. fib with RVR. Likely etiology of respiratory failure is COPD. Also had sepsis from UTI. Her heart rates are improved Patient has been put on digoxin.Amiodarone switched to PO. Continue cardizem and metoprolol and uptitrate as tolerated ECHO done. ECHO is of limited quality but has normal LV systolic function Patient's chest x-ray shows significantly elevated left diaphragm. No plans for cardioversion at this time Thank you for involving us with care of this patient. We will continue to follow. Please call with questions. Attestations Medical Necessity Statement*: Care expected to cross 2 midnights. 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
--- NOTE | 2021-10-21 10:33 | PC.CHAP ---
Pastoral Care Encounter/Spiritual Assessment Type of Contact [] Declined photography spotter visit [] Patient/Family/Request visit [] Outpatient visit [] Follow-up visit [] Physician referral [] Code/Alert [x] Routine visit [] Staff referral [] Actively dying [] Patient sleeping [] Family support [] [] Out of room [] Palliative care [] [x] Receiving care in room [] Pre-surgical visit [] Trauma [] Long length of stay [x] ICU visit [] Other: Relational/Emotional Strength [] Patient feels connected with others/family/visitors/staff [] Distress [] Loneliness/isolation [] Abandonment Spirituality of Patient [] Person of Domi [] Attends Yazidism of their Domi [] Believes in Prayer [] Reads Bible or Christian materials [] There are Spiritual issues to be addressed Receptionist Telephone Operator Interventions [x] Prayer [] Active listening [] Non-anxious presence [] Spiritual/emotional support [] Crisis/trauma care [] Spiritual counseling [] Bereavement support [] Provided bereavement packet [] Provided Bible/devotional materials [] Provided toy/stuffed animal, coloring book to patient or family member [] Provided Communion [] Anointing/Tulia [] Salvation [x] Completed spiritual assessment [] Other: Impact on Illness or Injury [] Angry [] Fearful [] Anxious [] Often cries [] Exhaustion [] Unable to work [] Unable to attend sabianism [] Unable to walk/stand [] Unable to read [] Unable to drive [] Unable to eat/drink [] Unable to sleep [] Unable to be with family [] Patient intubated [] Other: Summary Time spent with patient
[2021-10-21] MEDS: enoxaparin 60 mg/0.6 mL Syringe SUBCUT ×2 (11:16→23:54)
[2021-10-21] MEDS: magnesium hydroxide 30 mL UDC 15 ML PO (11:16)
[2021-10-21] MEDS: metoprolol tartrate 25 mg Tablet 12.5 MG PO (11:16)
[2021-10-21] MEDS: sodium chloride 0.9% 1,000 ML 50 ML IV (16:30)
--- NOTE | 2021-10-21 16:56 | P.PN_ITS ---
Subjective Subjective: Seen multiple times during the day. Overnight patient was started on Precedex drip. Both Precedex drip and Cardizem drip. Secondary to hypotension and bradycardia. Patient was transiently on Levophed drip for couple of hours. Today morning on examination patient's heart rate running in high 90s. Blood pressure well controlled with Pressure over 70. Patient is awake and alert, saturating in high 80s on 2 to 3 L of nasal cannula. States feeling better. Denies any nausea, vomiting, headac he, chest pain. Medications: Reviewed: Yes Vitals/I&O/Wt Last Vital Signs Temp 98.2 F 10/21/21 07:30 Pulse 95 10/21/21 16:30 Resp 29 H 10/21/21 16:30 BP 116/68 10/21/21 16:30 Pulse Ox 89 L 10/21/21 16:30 10/21/21 10/21/21 10/21/21 06:59 14:59 22:59 Intake Total 50 / 1876.772 766 / 766 961.667 / 1727.667 Output Total 180 / 580 150 / 150 Balance -130 / 1296.772 616 / 616 961.667 / 1577.667 Weight last 48 hrs Weight 74.888 kg Weight 72.167 kg Physical Exam Narrative: General: AOx3, acute distress due to shortness of breath, examined both on BiPAP on 3 L nasal cannula HEENT: PERRLA, pupils bilaterally equal and reactive Chest: Bilateral bronchial breath sounds, rhonchi all over the lung albright, coarsening of the lung albright, pigeon chest type chest wall deformity CVS: S1-S2 regular, no murmurs, no tachycardia, no gallops, no rubs Abdomen: Soft, nontender, no organomegaly, bowel sounds present Neuro: No focal deficits, no facial deformity, AO x3, power 5/5 in all limbs Urinary Catheter Management: Simpson: Cath Placed During This Visit: yes Reason for Continuing Indwelling Catheter: Accurate Measurement of Urinary Output in Critically Ill Patients Urinary Catheter Date of Insertion: 10/18/21 Urinary Catheter Time of Insertion: 00:00 Data : 10/21/21 06:34 10/21/21 06:30 A&P Assessment and plan (1) Atrial fibrillation with RVR: Status: Acute (2) Altered mental status: Status: Acute (3) Severe sepsis: Status: Acute (4) UTI (urinary tract infection): Status: Acute (5) Subclinical hyperthyroidism: Status: Acute (6) Thyroid mass: Status: Acute (7) Renal insufficiency: Status: Acute Plan 72-year-old female with no significant past medical history was admitted to the hospital for encephalopathy found to be in sepsis with hypotension and atrial fibrillation with rapid ventricular response. Altered mental status: Resolved. Most likely secondary to combination of hypercapnia, metabolic encephalopathy from sepsis. Resolving. Patient is AOx3 of BiPAP. Hypercapnic respiratory failure: Most likely secondary to undiagnosed COPD and restrictive lung disease. Continue with intermittent BiPAP ventilation. Oxygen supplementation keeping saturation 86 to 88%. Wean Solu-Medrol to 40 mg IV every 12 hourly. Ipratropium, Xopenex every 6 hours on budesonide twice daily. Severe sepsis: Present on admission. Shock is resolved. Patient is not on Levophed anymore. Most likely secondary to UTI. Keep mean arterial pressure over 65. Levophed if needed. Follow-up blood culture, urine culture. Urine culture growing pansensitive E. coli. Continue with Zosyn to finish a 5-day course. Day 4/5 today. Atrial fibrillation with rapid ventricular response: Could be secondary to [place] bclinical hyperthyroidism. Better controlled. Continued amiodarone 4 mg twice daily, digoxin 125 mcg daily, oral Cardizem 90 mg every 6 hourly, metoprolol 12.5 mg twice daily. We will try to decrease the dose of Cardizem and increase metoprolol if possible. High Isidoro vas score:. Continue with Lovenox 1 mg/kg body weight every 12 hourly for now. Acute kidney injury: Continue with gentle IV hydration. Resolved. Medical reconciliation done for nephrotoxic drugs. Subclinical hyperthyroidism: Low TSH. Free T3, free T4 normal. Thyroid ultrasound concerning for left complex nodule. Possibility of toxic adenoma versus goiter. Given advanced age, uncontrolled atrial fibrillation with rapid ventricular response for now we will start treatment with methimazole 5 mg oral daily. Will need to repeat thyroid profile within next 6 weeks for further up titration of medication. CODE STATUS: Discussed in detail with the patient. DNR/DNI. Lovenox will suffice for DVT prophylaxis. Protonix for PUD prophylaxis. Full liquid diet. Out of bed to chair. Physical therapy. Patient's care was discussed in detail with patient and daughter at bedside. All the questions were answered. Continue with ICU care. Attestations Medical Necessity Statement*: Requires further hospitalization for management of hypercapnic respiratory failure secondary to advanced COPD/restrictive lung disease, atrial fibrillation with rapid ventricular response. Critical Care Time: The high probability of a clinically significant, sudden or life threatening deterioration of the patient's cardiac, pulmonary system(s) required my full and direct attention, intervention and personal management. The critical care time is as shown. This time is in addition to time spent performing any reported procedures but includes the following: [x] Data and vital sign review and interpretation [x] Patient assessment, examination and intervention [x] Documentation [x] Medication orders and management Critical Care Time (min): 90 Coding Level of Care Code Acute Treasury Associate for [facility] Fwd Diagnoses Atrial fibrillation with RVR I48.91 Altered mental status R41.82 Severe sepsis A41.9; R65.20 UTI (urinary tract infection) N39.0 Subclinical hyperthyroidism E05.90 Thyroid mass E07.9 Renal insufficiency N28.9
[2021-10-21] MEDS: metoprolol tartrate 25 mg Tablet PO (20:59)
[2021-10-22] VITALS (57 sets, daily range): BP systolic 88–134; BP diastolic 53–89; PULSE 71–109; RESP 16–228; TEMP 36.4; O2SAT 85–97
[2021-10-22] MEDS: piperacillin-tazobactam 3.375 GM in sodium chloride 0.9% (plus) 50 ML IV ×4 (00:26→23:28)
[2021-10-22] MEDS: levalbuterol 0.63 mg/3 mL Neb INHALATION ×4 (03:23→20:24)
[2021-10-22 03:59] LABS: Basophils % 0.1 %; Hematocrit 46.2 % (37.0-47.0); Hemoglobin 13.4 g/dL (11.5-15.3); Lymphocytes # 0.1 10^3/uL (0.8-4.8); Mean Corpuscular Hemoglobin 27.5 pg (28.0-34.0); Mean Corpuscular Volume 94.7 fl (81-99); Mean Platelet Volume 9.5 fL (7.4-10.4); Monocytes # 0.3 10^3/uL (0.2-0.9); Monocytes % 3.1 %; Neutrophils # 8.63 10^3/uL (1.8-7.7); Neutrophils % 95.1 %; Nucleated Red Blood Cells % 0.2 %; Platelet Count 165 10^3/cmm (130-400); Red Blood Count 4.88 10^6/uL (4.1-5.3); Red Cell Distribution Width 14.7 % (12.1-15.1); White Blood Count 9.1 10^3/uL (4.0-10.0)
[2021-10-22 04:29] LABS: Alanine Aminotransferase 42 U/L (0-33); Albumin Level 3.9 g/dL (3.5-5.2); Alkaline Phosphatase 73 IU/L (35-105); Aspartate Amino Transferase 24 U/L (0-32); Blood Urea Nitrogen 56 mg/dL (8-23); Calcium 8.1 mg/dL (8.5-10.5); Carbon Dioxide 26 mmol/L (22-29); Chloride 103 mmol/L (98-107); Glucose 134 mg/dL (65-115); Osmolality Calculated 305 mOsm/kg (285-295); Sodium 139 mmol/L (136-145); Total Protein 5.9 g/dL (6.6-8.7)
[2021-10-22] MEDS: dilTIAZem 60 mg Tablet PO ×2 (05:52→11:49)
[2021-10-22] MEDS: metoclopramide 5 mg/mL SDV 2 mL IVP ×2 (05:52→23:27)
[2021-10-22] MEDS: pantoprazole 40 mg SDV IVP (08:04)
[2021-10-22] MEDS: amiodarone 200 mg Tablet 400 MG PO ×2 (08:04→17:32)
[2021-10-22] MEDS: metoprolol tartrate 25 mg Tablet PO ×2 (08:05→10:01)
[2021-10-22] MEDS: methIMAzole 5 MG Tablet PO (08:05)
[2021-10-22] MEDS: digoxin 125 mcg Tablet PO (08:05)
[2021-10-22] MEDS: budesonide 0.5 mg/2 mL Neb INHALATION ×2 (08:08→20:24)
[2021-10-22] MEDS: ipratropium 0.5 mg/2.5 mL Neb INHALATION ×3 (08:08→20:24)
[2021-10-22 08:53] LABS: ABG PH Result 7.22 (7.35-7.45); Alveolar-Arterial Oxygen Gradi 0.8 mmHg (5-10); Arterial Blood Gas Hematocrit 42.4 % (37-47); Base Excess ABG -0.1 mmol/L (-2.0-2.0); Blood Gas Allen Test Pos; Blood Gas Operator Identificat CAK; Blood Gas Sample Site Radial, left; Blood Gas Sample Type Arterial; Carboxyhemoglobin 1.1 %THgb (0.4-20.1); HCO3 ABG 29.5 mmol/L (22-26); HGB O2 Sat 87.9 % (95-100); Ionized Calcium Level - ABG 1.2 mmol/L (1.1-1.4); Methemoglobin 0.6 % (0.4-1.5); Oxygen Device NC; Oxygen Saturation ABG 89.3; PO2 ABG 58.1 mmHg (80.0-100.0); Potassium Level - ABG 4.3 mmol/L (3.5-5.0); Total Hemoglobin 13.8 g/dL (12-16)
[2021-10-22 08:54] LABS: ABG PCO2 71.3 mmHg (35-45)
--- NOTE | 2021-10-22 09:21 | XRR_ITS ---
PROCEDURE INFORMATION: Exam: XR Abdomen Exam date and time: 10/22/2021 10:16 AM Age: 80 years old Clinical indication: Condition or disease; Intestinal condition; Other: Ileus TECHNIQUE: Imaging protocol: XR of the abdomen. Views: 2 Views. Upright and supine views. COMPARISON: CT chest abd pel wo con 10/19/2021 3:05 PM FINDINGS: Diaphragm: Similar elevation of the left hemidiaphragm. Gastrointestinal tract: Similar to slightly improved gaseous distention of small and large bowel loops. Intraperitoneal space: Normal. No free air. Organs: Calcified uterine fibroids. Bones/joints: Unremarkable for age. XR/XR acute abdomen series [id number] IMPRESSION: Similar to slightly improved gaseous distention of small and large bowel loops.
[2021-10-22] MEDS: FUROsemide 10 mg/mL SDV 4mL 40 MG IVP (09:42)
[2021-10-22 10:31] LABS: NT Pro B Type Natriuretic Pept 7554 pg/mL (0-450)
--- NOTE | 2021-10-22 11:07 | PM.PN ---
Subjective Subjective: Patient has been having shortness of breath. Heart rates are better controlled. Vitals/I&O/Wt Last Vital Signs Temp 97.6 F 10/22/21 08:03 Pulse 86 10/22/21 08:59 Resp 22 H 10/22/21 08:08 BP 127/72 10/22/21 08:03 Pulse Ox 89 L 10/22/21 08:59 10/21/21 10/22/21 10/22/21 22:59 06:59 14:59 Intake Total 1251.667 / 2017.667 50 / 2067.667 1070.833 / 1070.833 Output Total 140 / 290 100 / 390 50 / 50 Balance 1111.667 / 1727.667 -50 / 9510.573 8593.833 / 1020.833 Weight last 48 hrs Weight 163 lb 14.4 oz Weight 165 lb 1.6 oz Physical Exam Narrative: GENERAL: Patient is alert NECK: No jugular vein distension. [] HEENT: No cyanosis. No icterus. No pallor. [] HEART: Tachycardic, irregularly irregular LUNGS: Mild crackles, decreased heart sounds ABDOMEN: Soft CENTRAL NERVOUS SYSTEM: Grossly nonfocal. [] EXTREMITIES: 1-2+ pitting edema bilaterally [] Urinary Catheter Management: Simpson: Cath Placed During This Visit: yes Reason for Continuing Indwelling Catheter: Accurate Measurement of Urinary Output in Critically Ill Patients Urinary Catheter Date of Insertion: 10/18/21 Urinary Catheter Time of Insertion: 00:00 Data : 10/22/21 03:08 10/23/21 04:49 A&P Assessment and plan (1) Shock: Status: Acute (2) Atrial fibrillation with RVR: Status: Acute (3) Acute respiratory failure: Status: Acute (4) UTI (urinary tract infection): Status: Acute (5) Altered mental status: Status: Acute (6) Renal insufficiency: Status: Acute (7) Hyperammonemia: Status: Acute (8) Hyperkalemia: Status: Acute Plan Patient denies any prior cardiac history and is here for altered mental status, shortness of breath and was found to be in A. fib with RVR. Likely etiology of respiratory failure is COPD. Also had sepsis from UTI. Heart rates are controlled now Patient has been put on digoxin.Amiodarone switched to PO. Continue cardizem and metoprolol and uptitrate as tolerated ECHO done. ECHO is of limited quality but has normal LV systolic function Patient's chest x-ray shows significantly elevated left diaphragm. No plans for cardioversion at this time Thank you for involving us with care of this patient. We will continue to follow. Please call with questions. Attestations Medical Necessity Statement*: Care expected to cross 2 midnights. 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
--- NOTE | 2021-10-22 11:32 | PC.SOCIAL ---
IMM update IMM updated with patient. Verbalized an understanding. Copy Pg 2 provided. Initialled, dated, timed, and placed in chart.
[2021-10-22] MEDS: enoxaparin 60 mg/0.6 mL Syringe SUBCUT ×2 (11:48→23:26)
[2021-10-22] MEDS: magnesium hydroxide 30 mL UDC PO (11:48)
[2021-10-22 12:12] LABS: Add Urine Microscopic? NO; Charge for UA Resulting for Rev
[2021-10-22 12:23] LABS: Bilirubin Urine Neg (Negative); Blood Urine Neg (Negative); Glucose Urine UA Norm (Normal); Ketones Urine Negative (Negative); Leukocyte Esterase Urine Negative (Negative); Nitrate Urine Negative (Negative); Protein Urine Neg (Negative); Urine Appearance Clear (CLEAR); Urine Color Colorless (Yellow); Urobilinogen Urine Norm (Negative); pH Urine 5 (5-7)
[2021-10-22 12:38] LABS: Urine Creatinine 11 mg/dL (28-217)
[2021-10-22 13:49] LABS: Creatine Kinase BB Total None Detected (None Detected); Creatine Kinase MB Total 0 % (<5); Creatine Kinase MM Total 100 % (95-100)
--- NOTE | 2021-10-22 13:57 | PM.PN ---
Subjective Subjective: Overnight patient was on BiPAP for couple of hours. Today morning on examination patient was fairly short of breath. ABG showing a pH of 7.22 with a PCO2 of 71. Patient was placed back on BiPAP at AVAPS mode. She was pulling more than 500 tidal volume at a pressure of 18 during the day BiPAP mode was turned down to 18/8. Later in the day with family at bedside further goals of care discussions were done. They requested to speak with telephonic nurse case manager to get more information regarding hospice care. Vitals/I&O/Wt Last Vital Signs Temp 97.6 F 10/22/21 08:03 Pulse 85 10/22/21 13:00 Resp 22 H 10/22/21 13:00 BP 107/61 10/22/21 13:00 Pulse Ox 93 10/22/21 13:00 10/21/21 10/22/21 10/22/21 22:59 06:59 14:59 Intake Total 1251.667 / 2017.667 50 / 2067.667 1360.833 / 1360.833 Output Total 140 / 290 100 / 390 50 / 50 Balance 1111.667 / 1727.667 -50 / 4703.152 1841.833 / 1310.833 Weight last 48 hrs Weight 74.344 kg Weight 74.888 kg Physical Exam Narrative: General: AOx3, acute distress due to shortness of breath, examined both on BiPAP on 3 L nasal cannula HEENT: PERRLA, pupils bilaterally equal and reactive Chest: Bilateral bronchial breath sounds, rhonchi all over the lung albright, coarsening of the lung albright, pigeon chest type chest wall deformity CVS: S1-S2 regular, no murmurs, no tachycardia, no gallops, no rubs Abdomen: Soft, nontender, no organomegaly, bowel sounds present Neuro: No focal deficits, no facial deformity, AO x3, power 5/5 in all limbs Urinary Catheter Management: Simpson: Cath Placed During This Visit: yes Reason for Continuing Indwelling Catheter: Accurate Measurement of Urinary Output in Critically Ill Patients Urinary Catheter Date of Insertion: 10/18/21 Urinary Catheter Time of Insertion: 00:00 Data : 10/22/21 03:08 10/22/21 03:08 A&P Assessment and plan (1) Hypercapnic respiratory failure, chronic: Status: Acute (2) Respiratory acidosis: Status: Acute (3) Chronically elevated hemidiaphragm: Status: Acute (4) Atrial fibrillation with RVR: Status: Acute (5) Renal insufficiency: Status: Acute (6) Ileus: Status: Acute (7) Subclinical hyperthyroidism: Status: Acute (8) Thyroid mass: Status: Acute (9) UTI (urinary tract infection): Status: Acute (10) Severe sepsis: Status: Acute (11) Altered mental status: Status: Acute Plan 72-year-old female with no significant past medical history was admitted to the hospital for encephalopathy found to be in sepsis with hypotension and atrial fibrillation with rapid ventricular response. Altered mental status: Resolved. Most likely secondary to combination of hypercapnia, metabolic encephalopathy from sepsis. Resolving. Patient is AOx3 of BiPAP. Hypercapnic respiratory failure: Most likely secondary to undiagnosed COPD and restrictive lung disease. Continue with intermittent BiPAP ventilation. Oxygen supplementation keeping saturation 86 to 88%. Wean Solu-Medrol to 40 mg IV every 12 hourly. Ipratropium, Xopenex every 6 hours on budesonide twice daily. There is a component of possible diastolic congestive heart failure. Check proBNP. Stop IV fluids. Lasix 40 mg once. Monitor input output. Severe sepsis: Present on admission. Shock is resolved. Patient is not on Levophed anymore. Most likely secondary to UTI. Keep mean arterial pressure over 65. Levophed if needed. Follow-up blood culture, urine culture. Urine culture growing pansensitive E. coli. Continue with Zosyn to finish a 5-day course. Day 5/5 today. Atrial fibrillation with rapid ventricular response: Could be secondary to subclinical hyperthyroidism. Better controlled. Continued amiodarone 400 mg twice daily, digoxin 125 mcg daily, oral Cardizem 30 mg every 6 hourly, metoprolol 50 mg twice daily. We will try to decrease the dose of Cardizem and increase metoprolol if possible. High Isidoro vas score:. Continue with Lovenox 1 mg/kg body weight every 12 hourly for now. Acute kidney injury: Stop IV hydration. Cannot rule out CRS. Repeat urinalysis, urine lites, urine eosinophils, urine creatinine. Medical reconciliation done for nephrotoxic drugs. Subclinical hyperthyroidism: Low TSH. Free T3, free T4 normal. Thyroid ultrasound concerning for left complex nodule. Possibility of toxic adenoma versus goiter. Given advanced age, uncontrolled atrial fibrillation with rapid ventricular response for now we will start treatment with methimazole 5 mg oral daily. Will need to repeat thyroid profile within next 6 weeks for further up titration of medication. CODE STATUS: Discussed in detail with the patient. DNR/DNI. Lovenox will suffice for DVT prophylaxis. Protonix for PUD prophylaxis. Full liquid diet. Out of bed to chair. Physical therapy. Plan for day: Last dose of antibiotic today. Stop IV fluid. IV Lasix. Wean Solu-Medrol 40 mg twice daily. Decrease Cardizem dose to 30 mg every 6 hourly. Increase metoprolol to 50 mg twice daily. Continue with methimazole. Continue with amiodarone and digoxin. Chest x-ray, abdominal series. Repeat Milk of Magnesia. Continue with Reglan. Full liquid diet when possible. Further goals of care discussion with family. Appreciate pulmonary recommendations. Overnight pulse oximetry for possible BiPAP ventilation as an outpatient. Physical therapy. Attestations Medical Necessity Statement*: Requires further hospitalization management of persistent hypercapnic respiratory failure, respiratory metabolic acidosis in setting of COPD, chronic elevation of left hemidiaphragm, BiPAP dependence, acute kidney injury Critical Care Time: The high probability of a clinically significant, sudden or life threatening deterioration of the patient's [pulmonary, cardiac, renal, goals of care discussion system(s) required my full and direct attention, intervention and personal management. The critical care time is as shown. This time is in addition to time spent performing any reported procedures but includes the following: [x] Data and vital sign review and interpretation [x] Patient assessment, examination and intervention [x] Documentation [x] Medication orders and management Critical Care Time (min): 90 Coding Level of Care Code Acute Unloader Operator for Chg Fwd Diagnoses Atrial fibrillation with RVR I48.91 Altered mental status R41.82 Severe sepsis A41.9; R65.20 UTI (urinary tract infection) N39.0 Subclinical hyperthyroidism E05.90 Thyroid mass E07.9 Renal insufficiency N28.9 Chronically elevated hemidiaphragm J98.6 Ileus K56.7 Hypercapnic respiratory failure, chronic J96.12 Respiratory acidosis E87.2
[2021-10-22] MEDS: dilTIAZem 60 mg Tablet 30 MG PO ×2 (15:00→23:27)
--- NOTE | 2021-10-22 15:50 | P.CONIM_ITS ---
Providers/Reason For Consult Consulting Physician/Specialty*: Jigar Mcnally MD/Pulmonary Critical Care Reason for Consult*: Acute hypercapnic respiratory failure in patient with A. fib RVR and significant elevation of left hemidiaphragm Requesting Physician: Codey Muñoz MD Attending Physician: Codey Muñoz MD History of Present Illness History of Present Illness Lilia Hunter is a 80 year old female past medical history of hyperthyroidism- presented to hospital on 10/17/2021 for confusion found to be in atrial fibrillation with RVR. On admission she is found to be hypercapnic respiratory failure with pH 7.10 and PCO2 96-she responded well to BiPAP and her ABG impr cynthia to 7.33/PCO2 48. She is also found to have UTI and was requiring pressors for hemodynamic support. Patient was started on amiodarone IV anticoagulation for A. fib RVR and also started on digoxin. Her chest x-ray showed significantly elevated left hemidiaphragm suggesting possible diaphragmatic paralysis. Echo is of limited quality but has normal LV systolic function. Later she came off pressors, clinically responding to antibiotics for UTI, overall her heart rate is well controlled with Cardizem and metoprolol, mentation improved on BiPAP. Pulmonary consulted for significant elevation of left hemidiaphragm and patient with hypercapnic respiratory failure dependent on BiPAP. -Today morning patient seen on bedside -On 3 L nasal cannula saturating 88%; but appeared in respiratory distress and as per staff she was able to sit out of bed to chair yesterday and today she cannot even lay down on bed with respiratory difficulty -Clinically appears volume overloaded-net +9 L since admission and +3 L in last 48 hours -Currently off pressors -Other labs and imaging reviewed -Patient is DNR/DNI and expressed that she does not want to be BiPAP dependent; hospitalist has ongoing discussion with family regarding goals of care Medications/Allergies Home Medications Medication Instructions Recorded Confirmed Last Taken Type No Known Home Medications 10/18/21 10/18/21 Unknown History Allergies Allergy/AdvReac Type Severity Reaction Status Date / Time No Known Allergies Allergy Verified 10/18/21 09:26 Current Medications Generic Name Dose Route Start Last Admin Trade Name Freq PRN Reason Stop Dose Admin Amiodarone HCl 400 mg 10/19/21 11:40 10/22/21 08:04 Amiodarone 200 Mg Tablet PO 400 mg BID RISSA Administration Budesonide 0.5 mg 10/19/21 13:40 10/22/21 08:08 Budesonide 0.5 Mg/2 Ml Neb INHALATION 0.5 mg BID.RESPIRATORY RISSA Administration Digoxin 125 mcg 10/19/21 11:15 10/22/21 08:05 Digoxin 125 Mcg Tablet PO 125 mcg DAILY RISSA Administration Diltiazem HCl 30 mg 10/22/21 14:23 10/22/21 15:00 Diltiazem 60 Mg Tablet PO 30 mg Q6H RISSA Administration Enoxaparin Sodium 60 mg 10/17/21 23:58 10/22/21 11:48 Enoxaparin 60 Mg/0.6 Ml Syringe SUBCUT 60 mg Q12H RISSA Administration Piperacillin Sod/Tazobactam 50 mls @ 12.5 mls/hr 10/18/21 08:30 10/22/21 11:57 Sod 3.375 gm/ Sodium Chloride IV 10/23/21 08:29 Infused Q8H RISSA Infusion Protocol dexmedeTOMIDine 0.9 % NaCL 400 mcg in 100 mls @ 0 mls/hr 10/19/21 18:45 10/20/21 22:46 Precedex IV 0 mcg/kg/hr .Q0M RISSA 0 mls/hr Titration Protocol Per Protocol Ipratropium [place] 0.5 mg 10/19/21 15:00 10/22/21 14:02 Ipratropium 0.5 Mg/2.5 Ml Neb INHALATION 0.5 mg TID.RESPIRATORY RISSA Administration Levalbuterol HCl 0.63 mg 10/19/21 15:00 10/22/21 14:02 Levalbuterol 0.63 Mg/3 Ml Neb INHALATION 0.63 mg Q6H.RESPIRATORY RISSA Administration Magnesium Hydroxide 30 ml 10/22/21 10:00 10/22/21 11:48 Magnesium Hydroxide 30 Ml Udc PO 30 ml BEDTIME PRN Administration CONSTIPATION Methimazole 5 mg 10/19/21 14:00 10/22/21 08:05 Methimazole 5 Mg Tablet PO 5 mg DAILY RISSA Administration Metoclopramide HCl 5 mg 10/20/21 11:00 10/22/21 11:47 Metoclopramide 5 Mg/Ml Sdv 2 Ml IVP Not Given Q6H RISSA Pantoprazole Sodium 40 mg 10/18/21 09:00 10/22/21 08:04 Pantoprazole 40 Mg Sdv IVP 40 mg DAILY RISSA Administration PFSH Acute PFSH: Medical History Atrial fibrillation with RVR Chronically elevated hemidiaphragm Hypercapnic respiratory failure, chronic Vitals/I&O/Wt Last Vital Signs Temp 97.6 F 10/22/21 08:03 Pulse 86 10/22/21 15:33 Resp 28 H 10/22/21 14:30 BP 105/64 10/22/21 13:30 Pulse Ox 97 10/22/21 15:33 10/22/21 10/22/21 10/22/21 06:59 14:59 22:59 Intake Total 50 / 2067.667 1360.833 / 1360.833 Output Total 100 / 390 50 / 50 Balance -50 / 5637.743 9486.833 / 1310.833 Weight last 48 hrs Weight 163 lb 14.4 oz Weight 165 lb 1.6 oz Physical Exam Narrative: General: Drowsy and appears clinically volume overloaded HEENT: conj clear, EOMI, PERRL, mmm, Neck: supple, no meningismus Heme: no cervical LAP Pulmonary: Bibasilar crackles, reduced breath sounds on left lung Cardiovascular: rrr, nl s1s2, no mrg Abdomen: soft, nt, nd, no r/g, bs+ Extremities: pulses +, 2+ pitting pedal edema, no c/c : no CVA tenderness Skin: intact, no rash MSK: no back or neck pain Neurologic: grossly intact Urinary Catheter Management: Simpson: Cath Placed During This Visit: yes Reason for Continuing Indwelling Catheter: Accurate Measurement of Urinary Output in Critically Ill Patients Urinary Catheter Date of Insertion: 10/18/21 Urinary Catheter Time of Insertion: 00:00 Data : 10/22/21 03:08 10/22/21 03:08 Other Labs: Radiology Impressions Chest X-Ray 10/17/21 20:41 IMPRESSION: Extremely limited exam with multiple abnormalities as described above. Comparison prior study/CT correlation may be helpful. Chest CT 10/17/21 22:06 IMPRESSION: 1. Markedly elevated left hemidiaphragm. See discussion above. 2. Small bilateral pleural effusions with adjacent consolidations which may represent compressive atelectasis versus pneumonia. Follow-up should be obtained. No ground-glass opacity. 3. Dilatation of main pulmonary artery and ascending aorta. 4. [id number] cardiomegaly with coronary calcification probable mild vascular congestion. No obvious pulmonary edema. 5. Thyroid and vertebral findings as described above. See comments below. COMMENTS: 1. Consistent with the [employer]'s Incidental Findings Committee white paper (J Am Stefania Radiol 2018): Any incidental renal lesion less than 1 cm or classified as too small to characterize, or any incidental cystic renal lesion characterized as simple-appearing, is likely benign. No follow-up imaging is recommended for these lesions per consensus recommendations based on imaging criteria. 2. Consistent with the [employer]'s Incidental Findings Committee white paper (J Am Stefania Radiol 2015): In patients aged 35 years and older with an incidental thyroid nodule equal to or greater than 1.[address], MRI or extrathyroidal US, further evaluation with dedicated thyroid US is recommended for patients with normal life expectancy and without comorbidities. For smaller nodules without suspicious features, no further evaluation or follow up is recommended. 3. Limited life expectancy and comorbidities that increase the risk of treatment or are more likely to cause morbidity and mortality than the thyroid cancer itself. Patients with comorbidities or limited life expectancy should not have further evaluation, unless it is warranted clinically, or specifically requested by the patient or referring physician. Head CT 10/17/21 23:25 IMPRESSION: 1. No acute intracranial hemorrhage or mass effect. 2. No definite acute infarct by CT, see above. 3. Other findings discussed above. Thyroid Ultrasound 10/18/21 00:45 IMPRESSION: Left thyroid lobe mass measuring 3.9 x 3.2 x 3.6 cm. Abdomen Ultrasound 10/18/21 01:54 IMPRESSION: 1. Limitations as above. 2. The gallbladder could not be visualized. Clinical correlation (prior cholecystectomy?) is recommended. 3. Mild right renal pelviectasis. Chest/Abdomen/Pelvis CT 10/19/21 14:09 IMPRESSION: 1. Comparison chest CT 10/17/2021. Relatively stable appearance with markedly elevated left hemidiaphragm with bibasilar consolidative changes and pleural effusions as described above. 2. Several other findings are also stable. No acute findings otherwise. Please see previous CT exam report 2 days earlier for discussion of thyroid findings. IMPRESSION: 1. Exam very limited due to severe motion and lack of contrast. 2. A gallstone is noted in the right lower quadrant. Unclear if this is within the low lying gallbladder fundus or a stone within the bowel lumen in the setting of gallstone ileus/obstruction. Sonographic correlation may be helpful. There is mild diffuse small bowel distention. No severe colonic obstruction is otherwise identified. 3. No free air or obvious pneumatosis. Small pelvic ascites. 4. Soft tissue and vertebral findings. See discussion above. 5. Other nonacute findings as described. COMMENTS: Consistent with the [employer]'s Incidental Findings Committee white paper (J Am Stefania Radiol 2018): Any incidental renal lesion less than 1 cm or classified as too small to characterize, or any incidental cystic renal lesion characterized as simple-appearing, is likely benign. No follow-up imaging is recommended for these lesions per consensus recommendations based on imaging criteria. Chest/Abdomen X-ray 10/22/21 09:21 IMPRESSION: Similar to slightly improved gaseous distention of small and large bowel loops. Laboratory Results WBC 9.1 10^3/uL (4.0-10.0) 10/22/21 03:08 RBC 4.88 10^6/uL (4.1-5.3) 10/22/21 03:08 Hgb 13.4 g/dL (11.5-15.3) 10/22/21 03:08 Hct 46.2 % (37.0-47.0) 10/22/21 03:08 MCV 94.7 fl (81-99) 10/22/21 03:08 MCH 27.5 pg (28.0-34.0) L 10/22/21 03:08 MCHC 29.0 g/dL (30.0-36.0) L 10/22/21 03:08 RDW 14.7 % (12.1-15.1) 10/22/21 03:08 Plt Count 165 10^3/cmm (130-400) 10/22/21 03:08 MPV 9.5 fL (7.4-10.4) 10/22/21 03:08 Neut % (Auto) 95.1 % 10/22/21 03:08 Lymph % (Auto) 1.0 % 10/22/21 03:08 Isabella % (Auto) 3.1 % 10/22/21 03:08 Eos % (Auto) 0.0 % 10/22/21 03:08 Baso % (Auto) 0.1 % 10/22/21 03:08 Neut # (Auto) 8.63 10^3/uL (1.8-7.7) H 10/22/21 03:08 Lymph # (Auto) 0.1 10^3/uL (0.8-4.8) L 10/22/21 03:08 Isabella # (Auto) 0.3 10^3/uL (0.2-0.9) 10/22/21 03:08 Eos # (Auto) 0.0 10^3/uL (0.0-0.8) 10/22/21 03:08 Baso # (Auto) 0.0 10^3/uL (0.0-0.1) 10/22/21 03:08 Nucleated RBC % (auto) 0.2 % 10/22/21 03:08 Nucleated RBCs # 0.0 /100WBC 10/22/21 03:08 PT 17.30 SECONDS (12.1-14.9) H 10/18/21 02:32 INR 1.38 (0.8-1.2) H 10/18/21 02:32 Specimen Type Arterial 10/22/21 08:42 Sample Site Radial, left 10/22/21 08:42 ABG pH 7.22 (7.35-7.45) L 10/22/21 08:42 ABG pCO2 71.3 mmHg (35-45) H* 10/22/21 08:42 ABG pO2 58.1 mmHg (80.0-100.0) L 10/22/21 08:42 ABG HCO3 29.5 mmol/L (22-26) H 10/22/21 08:42 ABG O2 Saturation 89.3 10/22/21 08:42 ABG Base Excess -0.1 mmol/L (-2.0-2.0) 10/22/21 08:42 Gasper Test Pos 10/22/21 08:42 A-a O2 Gradient 0.8 mmHg (5-10) L 10/22/21 08:42 Hematocrit 42.4 % (37-47) 10/22/21 08:42 Hgb O2 Saturation 87.9 % (95-100) L 10/22/21 08:42 Carboxyhemoglobin 1.1 %THgb (0.4-20.1) 10/22/21 08:42 Methemoglobin 0.6 % (0.4-1.5) 10/22/21 08:42 Total Hemoglobin 13.8 g/dL (12-16) 10/22/21 08:42 Sodium 141.0 mmol/L (131-143) 10/22/21 08:42 Potassium 4.3 mmol/L (3.5-5.0) 10/22/21 08:42 Glucose 135.0 mg/dL (70-115) H 10/22/21 08:42 Ionized Calcium 1.2 mmol/L (1.1-1.4) 10/22/21 08:42 O2 Delivery Device Nc 10/22/21 08:42 O2 Liters/Min 3.0 % 10/22/21 08:42 Tidal Volume 0.50 10/18/21 03:49 PEEP 8.0 cmH20 10/18/21 03:49 FiO2 32.0 % 10/20/21 11:55 Environmental Systems Coordinator ID Cak 10/22/21 08:42 Sodium 139 mmol/L (136-145) 10/22/21 03:08 Potassium 4.0 mmol/L (3.5-5.1) 10/22/21 03:08 Chloride 103 mmol/L (98-107) 10/22/21 03:08 Carbon Dioxide 26 mmol/L (22-29) 10/22/21 03:08 Anion Gap 14.0 (5-19) 10/22/21 03:08 BUN 56 mg/dL (8-23) H 10/22/21 03:08 Creatinine 1.2 mg/dL (0.5-0.9) H 10/22/21 03:08 GFR Calculation Not Reportable 10/22/21 03:08 Glucose 134 mg/dL (65-115) H 10/22/21 03:08 Estimat Average Glucose 108 10/20/21 04:15 Hemoglobin A1c 5.4 % (4.0-6.0) 10/20/21 04:15 Calculated Osmolality 305 mOsm/kg (285-295) H 10/22/21 03:08 Lactate 1.2 mmol/L (0.5-2.2) 10/18/21 13:10 Calcium 8.1 mg/dL (8.5-10.5) L 10/22/21 03:08 Phosphorus 3.9 mg/dL (2.5-4.5) 10/19/21 04:29 Magnesium 2.3 mg/dL (1.7-2.3) 10/19/21 04:29 Iron 30 ug/dL (37-145) L 10/19/21 04:29 TIBC 226 mcg/dl 10/19/21 04:29 % Saturation 13.2 % (20-50) L 10/19/21 04:29 Unsat Iron Binding 196 ug/dL (112-347) 10/19/21 04:29 Total Bilirubin 1.0 mg/dL (0.15-1.2) 10/22/21 03:08 AST 24 U/L (0-32) 10/22/21 03:08 ALT 42 U/L (0-33) H 10/22/21 03:08 Alkaline Phosphatase 73 IU/L (35-105) 10/22/21 03:08 Ammonia 42 umol/L (11-51) 10/19/21 10:40 CK-MM (CK-3) 100 % (95-100) 10/18/21 00:50 CK-MB (CK-2) 0 % (<5) 10/18/21 00:50 CK-BB (CK-1) None detected % (None Detected) 10/18/21 00:50 Creatine Kinase Interp see note 10/18/21 00:50 Troponin T Baseline 33 ng/L (0-10) H 10/17/21 20:50 Troponin T 120 Minute 31.82 ng/L (0-10) H 10/17/21 22:53 Delta Troponin T -1.18 ABS# (0-10) L 10/17/21 22:53 Troponin T Hi Sens 6Hr 30.83 ng/L (0-10) H 10/18/21 02:32 Troponin T Hi Sens 6Hr Delta -2.17 ng/L (0-12) L 10/18/21 02:32 C-Reactive Protein 8.2 mg/L (0.0-4.9) H 10/18/21 13:10 NT-Pro-B Natriuret Pep 7554 pg/mL (0-450) H 10/22/21 03:08 Total Protein 5.9 g/dL (6.6-8.7) L 10/22/21 03:08 Albumin 3.9 g/dL (3.5-5.2) 10/22/21 03:08 Globulin 2.0 g/dL (1.3-4.6) 10/22/21 03:08 Procalcitonin 0.09 ng/mL (0-0.5) 10/18/21 13:10 TSH 0.01 uIU/mL (0.27-4.20) L 10/19/21 04:29 Free T4 1.60 ng/dL (0.82-1.77) 10/19/21 04: Free T3 4.3 PG/ML (2.0-4.4) 10/18/21 13:10 Total T3 142 ng/dL (76-181) 10/18/21 13:10 Random Cortisol 33.77 ug/dL (2.47-19.5) H 10/19/21 04:29 Urine Color Colorless (Yellow) 10/22/21 11:46 Urine Appearance Clear (CLEAR) 10/22/21 11:46 Urine pH 5 (5-7) 10/22/21 11:46 Ur Specific [place] 1.010 (1.005-1.030) 10/22/21 11:46 Urine Protein Neg (Negative) 10/22/21 11:46 Urine Glucose (UA) Norm (Normal) 10/22/21 11:46 Urine Ketones Negative (Negative) 10/22/21 11:46 Urine Blood Neg (Negative) 10/22/21 11:46 Urine Nitrate Negative (Negative) 10/22/21 11:46 Urine Bilirubin Neg (Negative) 10/22/21 11:46 Urine Urobilinogen Norm mg/dL (Negative) 10/22/21 11:46 Ur Leukocyte Esterase Negative (Negative) 10/22/21 11:46 Urine RBC 0-4 /hpf (0-2) H 10/18/21 01:15 Urine WBC 10-15 /hpf (0-5) H 10/18/21 01:15 Ur Eosinophil Smear 0 (0-0) 10/22/21 11:46 Ur Squamous Epith Cells 5-10 /hpf (0-5) H 10/18/21 01:15 Amorphous Sediment Not Reportable 10/18/21 01:15 Urine Bacteria 4+ /hpf (NONE) H 10/18/21 01:15 Hyaline Casts 0-4 /lpf H 10/18/21 01:15 Urine Mucus 2+ /hpf 10/18/21 01:15 Urine Eosinophils No eosinophils seen 10/22/21 11:46 Urine Creatinine 11 mg/dL (28-217) L 10/22/21 11:46 Random Vancomycin 7.6 ug/mL (20.0-40.0) L 10/19/21 04:29 Vancomycin Trough 9.9 ug/mL (10-15) L 10/20/21 11:52 Digoxin 1.1 ng/mL (0.6-1.2) 10/21/21 06:30 Urine Opiates Screen Negative ng/mL (Negative) 10/18/21 01:15 Ur Barbiturates Screen Negative ng/mL (Negative) 10/18/21 01:15 Ur Phencyclidine Scrn Negative ng/mL (Negative) 10/18/21 01:15 Ur Amphetamines Screen Negative ng/mL (Negative) 10/18/21 01:15 U Benzodiazepines Scrn Negative ng/mL (Negative) 10/18/21 01:15 Urine Cocaine Screen Negative ng/mL (Negative) 10/18/21 01:15 U Marijuana (THC) Screen Negative ng/mL (Negative) 10/18/21 01:15 Thyroglobulin Antibody <1 IU/mL (< or = 1) 10/18/21 00:50 Thyroid Peroxidase Ab 1 IU/mL (<9) 10/18/21 00:50 Hepatitis A IgM Ab Non-reactive (Nonreactive) 10/18/21 02:39 Hep Bs Antigen Non-reactive (Nonreactive) 10/18/21 02:39 Hep B Core IgM Ab Non-reactive (Nonreactive) 10/18/21 02:39 Hepatitis C Antibody Non-reactive (Nonreactive) 10/18/21 02:39 A&P Assessment and plan (1) Altered mental status: Status: Acute (2) Atrial fibrillation with RVR: Status: Acute (3) Hypercapnic respiratory failure, chronic: Status: Acute (4) Respiratory acidosis: Status: Acute (5) Chronically elevated hemidiaphragm: Status: Acute (6) Subclinical hyperthyroidism: Status: Acute (7) UTI (urinary tract infection): Status: Acute (8) Shock: Status: Acute Plan #Altered mental status-secondary to CO2 narcosis -CT head on admission negative for any acute changes -Mentation improved with BiPAP and washing out CO2 -Currently on Precedex for anxiety #Acute hypercapnic respiratory failure-possibly volume overload secondary to A. fib RVR in patient with chronic hemidiaphragm elevation -Recommended BiPAP 18/8 and 3 L on O2 supplementation; -Admission CT and subsequent CT after 3 days-showed small bilateral pleural effusions and atelectasis vs pneumonia -MRSA nares negative-blood cultures 10/18 negative so far -Currently being covered with Zosyn for E. coli UTI-also covers broadly for any suspected pneumonia -Currently on Xopenex, Atrovent, Pulmicort nebulization and tapering dose of IV steroids #A. fib RVR-currently rate controlled-sepsis induced-subclinical hyperthyroidism #[place] -Clinically volume overloaded with net +9 L since admission and +3 L in the last 48 hours-avoid IV fluids -Given Lasix 40 Mg IV push-monitor input output and renal functions-and adjust Lasix accordingly -Currently on digoxin 125 MCG p.o. daily, amiodarone 400 mg p.o. twice daily, Cardizem 30 Mg p.o. every 6 hours, metoprolol 50 Mg p.o. twice daily for A. fib RVR and Lovenox 60 Mg twice daily -Monitor renal functions, electrolytes, input and output ##Septic shock secondary to UTI-resolved #E. coli UTI -Currently on Zosyn -Monitor WBC, fevers ICU CHECKLIST: Problem list updated Verbal orders reviewed and signed Analgesia: N/A Glycemic Control: N/A Nutrition: Full liquid diet Restraint Renewal (within 24 hrs): N/A Ulcer Prophylaxis: PPI Chemical Thromboprophylaxis: Prophylaxis: Lovenox Mechanical Thromboprophylaxis: SCD Need for Central line: N/A Need for Simpson catheter: Monitor urine output Ventilator bundle: N/A Code: DNR/DNI Prognosis: Guarded Critical Care Time (No Overlap): 45 Consult Attestations Medical Necessity Statement: Acute hypercapnic respiratory failure secondary to fluid overload due to A. fib RVR and patient with underlying UTI. Shock resolved. Patient family considering comfort care-ongoing goals of care discussion Time Spent in Patient Care: Greater than 35 minutes (>than 50% of time spent in counselling and/or direct pt care on unit) . Critical Care Time: The high probability of a clinically significant, sudden or life threatening deterioration of the patient's [pulmonary, cardiac, renal, infectious disease, BRICK BAKER system(s) required my full and direct attention, intervention and personal management. The critical care time is as shown. This time is in addition to time spent performing any reported procedures but includes the following: Services Provided: Telemetry review BiPAP settings Hemodynamic interpretation, assessment and management Review and interpretation of CXR Review and interpretation of lab values Review and interpretation of microbiologic data and culture results Review of medications and administration Review and interpretation of Nutrition requirements and management Discussion of management with other consultants and services Clinical update to family members Coding Level of Care Code New Pt Acute District Ranger for Chg Fwd Patient Type New History Comprehensive Exam Comprehensive Medical Decision Making High Complexity Diagnoses Atrial fibrillation with RVR I48.91 Hypercapnic respiratory failure, chronic J96.12 Respiratory acidosis E87.2 Chronically elevated hemidiaphragm J98.6 Subclinical hyperthyroidism E05.90 UTI (urinary tract infection) N39.0 Shock R57.9 Altered mental status R41.82 Time Spent (min) 45
[2021-10-22 16:29] LABS: Eosinophil Urine No Eosinophils Seen; Urine Eosinophil Count 0 (0-0)
[2021-10-22] MEDS: metoprolol tartrate 25 mg Tablet 50 MG PO (23:27)
[2021-10-23] VITALS (26 sets, daily range): BP systolic 96–132; BP diastolic 62–96; PULSE 81–115; RESP 14–24; TEMP 36.4; O2SAT 89–94
--- NOTE | 2021-10-23 00:06 | PC.NURSE ---
Called Med Surg and gave report to Marnie OSORIO to assume care. Pt. to go to room 256 bed 2
[2021-10-23] MEDS: levalbuterol 0.63 mg/3 mL Neb INHALATION ×4 (02:36→20:25)
[2021-10-23] MEDS: dilTIAZem 60 mg Tablet 30 MG PO ×2 (03:29→09:03)
[2021-10-23] MEDS: metoclopramide 5 mg/mL SDV 2 mL IVP ×4 (04:42→23:34)
[2021-10-23 05:34] LABS: Alanine Aminotransferase 50 U/L (0-33); Albumin Level 3.5 g/dL (3.5-5.2); Alkaline Phosphatase 64 IU/L (35-105); Blood Urea Nitrogen 53 mg/dL (8-23); Calcium 7.8 mg/dL (8.5-10.5); Carbon Dioxide 27 mmol/L (22-29); Chloride 104 mmol/L (98-107); Globulin 2.2 g/dL (1.3-4.6); Glucose 116 mg/dL (65-115); Osmolality Calculated 307 mOsm/kg (285-295); Sodium 141 mmol/L (136-145); Total Bilirubin 0.8 mg/dL (0.15-1.2); Total Protein 5.7 g/dL (6.6-8.7)
[2021-10-23 05:49] LABS: Anion Gap 14.3 (5-19); Aspartate Amino Transferase 26 U/L (0-32); Potassium 4.3 mmol/L (3.5-5.1)
[2021-10-23] MEDS: budesonide 0.5 mg/2 mL Neb INHALATION ×2 (08:00→20:24)
[2021-10-23] MEDS: ipratropium 0.5 mg/2.5 mL Neb INHALATION ×3 (08:00→20:27)
[2021-10-23] MEDS: amiodarone 200 mg Tablet 400 MG PO (09:02)
[2021-10-23] MEDS: metoprolol tartrate 25 mg Tablet 50 MG PO (09:02)
[2021-10-23] MEDS: digoxin 125 mcg Tablet PO (09:03)
[2021-10-23] MEDS: pantoprazole 40 mg SDV IVP (09:04)
[2021-10-23] MEDS: methIMAzole 5 MG Tablet PO (09:04)
[2021-10-23] MEDS: FUROsemide 10 mg/mL SDV 4mL 40 MG IVP (10:12)
--- NOTE | 2021-10-23 11:12 | PC.NURSE ---
Dr. Pagan changed diltiazem order from 30 to 60 mg. Verbal order to give 30 mg now to equal the 60 mg.
[2021-10-23] MEDS: dilTIAZem 30 mg Tablet PO (11:22)
--- NOTE | 2021-10-23 14:06 | PM.PN ---
Subjective Subjective: [facility] Resting comfortably. On 2 L nasal cannula. States her breathing is at baseline. Used BiPAP for 3 to 4 hours last night. Patient after discussion with case management and family yesterday placed on hospice. Today morning on examination confirmed with the patient. She is agreeable for to be discharged home with hospice. Discussed patient's care in detail with substance abuse services director who is agreeable with the patient's care and has agreed to take over once discharge. Requesting patient to be placed on Roxanol 5 mg every 6 hourly to be hold for lethargy Blood pressure systolic of less than 100 mmHg. Medications: Reviewed: Yes Vitals/I&O/Wt Last Vital Signs Temp 97.6 F 10/23/21 04:00 Pulse 100 10/23/21 13:08 Resp 24 H 10/23/21 11:34 BP 127/72 10/23/21 11:34 Pulse Ox 92 10/23/21 13:08 10/22/21 10/23/21 10/23/21 22:59 06:59 14:59 Intake Total 290 / 1650.833 330 / 1980.833 600 / 600 Output Total 400 / 450 300 / 750 Balance -110 / 1200.833 30 / 1230.833 600 / 600 Weight last 48 hrs Weight 72.847 kg Weight 74.344 kg Physical Exam Narrative: General: AOx3, acute distress due to shortness of breath, examined both on BiPAP on 3 L nasal cannula HEENT: PERRLA, pupils bilaterally equal and reactive Chest: Bilateral bronchial breath sounds, rhonchi all over the lung albright, coarsening of the lung albright, pigeon chest type chest wall deformity CVS: S1-S2 regular, no murmurs, no tachycardia, no gallops, no rubs Abdomen: Soft, nontender, no organomegaly, bowel sounds present Neuro: No focal deficits, no facial deformity, AO x3, power 5/5 in all limbs Urinary Catheter Management: Simpson: Cath Placed During This Visit: yes Reason for Continuing Indwelling Catheter: Accurate Measurement of Urinary Output in Critically Ill Patients Urinary Catheter Date of Insertion: 10/18/21 Urinary Catheter Time of Insertion: 00:00 Data : 10/22/21 03:08 10/23/21 04:49 Micro: Microbiology 10/18/21 13:20 Blood Culture - Final Blood NO GROWTH AFTER 5 DAYS 10/18/21 13:10 Blood Culture - Final Blood NO GROWTH AFTER 5 DAYS A&P Assessment and plan (1) Hypercapnic respiratory failure, chronic: Status: Acute (2) Respiratory acidosis: Status: Acute (3) Chronically elevated hemidiaphragm: Status: Acute (4) Atrial fibrillation with RVR: Status: Acute (5) Renal insufficiency: Status: Acute (6) Ileus: Status: Acute (7) Subclinical hyperthyroidism: Status: Acute (8) Thyroid mass: Status: Acute (9) UTI (urinary tract infection): Status: Acute (10) Severe sepsis: Status: Acute (11) Altered mental status: Status: Acute Plan 72-year-old female with no significant past medical history was admitted to the hospital for encephalopathy found to be in sepsis with hypotension and atrial fibrillation with rapid ventricular response. Altered mental status: Resolved. Most likely secondary to combination of hypercapnia, metabolic encephalopathy from sepsis. Resolving. Patient is AOx3 of BiPAP. Hypercapnic respiratory failure: Most likely secondary to undiagnosed COPD and restrictive lung disease. Continue with intermittent BiPAP ventilation. Oxygen supplementation keeping saturation 86 to 88%. Wean Solu-Medrol to 40 mg IV every 12 hourly. Ipratropium, Xopenex every 6 hours on budesonide twice daily. There is a component of possible diastolic congestive heart failure. Check proBNP. Stop IV fluids. Lasix 40 mg once. Monitor input output. Severe sepsis: Present on admission. Shock is resolved. Patient is not on Levophed anymore. Most likely secondary to UTI. Keep mean arterial pressure over 65. Levophed if needed. Follow-up blood culture, urine culture. Urine culture growing pansensitive E. coli. Continue with Zosyn to finish a 5-day course. Day 5 today. Atrial fibrillation with rapid ventricular response: Could be secondary to subclinical hyperthyroidism. Better controlled. Continued amiodarone 400 mg twice daily, digoxin 125 mcg daily, oral Cardizem 30 mg every 6 hourly, metoprolol 50 mg twice daily. We will try to decrease the dose of Cardizem and increase metoprolol if possible. High Isidoro vas score:. Continue with Lovenox 1 mg/kg body weight every 12 hourly for now. Acute kidney injury: Stop IV hydration. Cannot rule out CRS. Repeat urinalysis, urine lites, urine eosinophils, urine creatinine. Medical reconciliation done for nephrotoxic drugs. Subclinical hyperthyroidism: Low TSH. Free T3, free T4 normal. Thyroid ultrasound concerning for left complex nodule. Possibility of toxic adenoma versus goiter. Given advanced age, uncontrolled atrial fibrillation with rapid ventricular response for now we will start treatment with methimazole 5 mg oral daily. Will need to repeat thyroid profile within next 6 weeks for further up titration of medication. CODE STATUS: Discussed in detail with the patient. DNR/DNI. Lovenox will suffice for DVT prophylaxis. Protonix for PUD prophylaxis. Full liquid diet. Out of bed to chair. Physical therapy. Plan for the day: Patient placed on hospice as per goals of care discussion with family, patient and case management. Awaiting placement. Switch from full dose Lovenox to Eliquis 5 mg twice daily. Switch to prednisone 40 mg daily for 5 days. Continue with amiodarone 4 mg twice daily, digoxin 125 mcg, Cardizem 60 every 6, metoprolol 50 twice daily. Will consolidate doses prior to discharge. Attestations Medical Necessity Statement*: Requires further hospitalization while hospice at home is set up Time Spent in Patient Care: Greater than 35 minutes Coding Level of Care Code Acute Scout Leaser for Chg Fwd Diagnoses Hypercapnic respiratory failure, chronic J96.12 Respiratory acidosis E87.2 Chronically elevated hemidiaphragm J98.6 Atrial fibrillation with RVR I48.91 Renal insufficiency N28.9 Ileus K56.7 Subclinical hyperthyroidism E05.90 Thyroid mass E07.9 UTI (urinary tract infection) N39.0 Severe sepsis A41.9; R65.20 Altered mental status R41.82
[2021-10-23] MEDS: dilTIAZem 60 mg Tablet PO (14:52)
[2021-10-23] MEDS: morphine 10 mg/0.5 mL oral liq UD 2.5 MG PO (14:52)
--- NOTE | 2021-10-23 18:40 | PC.NURSE ---
Notified Dr. Pagan of patient unresponsiveness. Did not give amiodarone.
[2021-10-23 18:48] LABS: Alveolar-Arterial Oxygen Gradi 3.6 mmHg (5-10); Arterial Blood Gas Hematocrit 47.1 % (37-47); Base Excess ABG 2.1 mmol/L (-2.0-2.0); Blood Gas Allen Test Pos; Blood Gas Operator Identificat AMH; Blood Gas Sample Site Radial, right; Blood Gas Sample Type Arterial; Carboxyhemoglobin 1.3 %THgb (0.4-20.1); HCO3 ABG 34.1 mmol/L (22-26); HGB O2 Sat 92.7 % (95-100); Ionized Calcium Level - ABG 1.3 mmol/L (1.1-1.4); Methemoglobin 0.7 % (0.4-1.5); Oxygen Device BIPAP; Oxygen Saturation ABG 94.5; PO2 ABG 76.4 mmHg (80.0-100.0); Potassium Level - ABG 4.4 mmol/L (3.5-5.0); Total Hemoglobin 15.4 g/dL (12-16)
[2021-10-23 18:51] LABS: ABG PCO2 91.8 mmHg (35-45); ABG PH Result 7.18 (7.35-7.45)
--- NOTE | 2021-10-23 21:40 | P.PN_ITS ---
Subjective Subjective: Patient is comfortable at this time. Patient and family decided to go hospice. Vitals/I&O/Wt Last Vital Signs Temp 97.6 F 10/23/21 20:00 Pulse 83 10/23/21 20:30 Resp 16 10/23/21 20:30 BP 116/75 10/23/21 20:00 Pulse Ox 92 10/23/21 20:30 10/23/21 10/23/21 10/23/21 06:59 14:59 22:59 Intake Total 330 / 1980.833 600 / 600 Output Total 300 / 750 950 / 950 Balance 30 / 1230.833 600 / 600 -950 / -350 Weight last 48 hrs Weight 160 lb 9.6 oz Weight 163 lb 14.4 oz Physical Exam Narrative: GENERAL: Patient is alert NECK: No jugular vein distension. [] HEENT: No cyanosis. No icterus. No pallor. [] HEART: Tachycardic, irregularly irregular LUNGS: Mild crackles, decreased heart sounds ABDOMEN: Soft CENTRAL NERVOUS SYSTEM: Grossly nonfocal. [] EXTREMITIES: 1-2+ pitting edema bilaterally [] Urinary Catheter Management: Simpson: Cath Placed During This Visit: yes Reason for Continuing Indwelling Catheter: Accurate Measurement of Urinary Output in Critically Ill Patients Urinary Catheter Date of Insertion: 10/18/21 Urinary Catheter Time of Insertion: 00:00 Data : 10/22/21 03:08 10/23/21 04:49 Micro: Microbiology 10/18/21 13:20 Blood Culture - Final Blood NO GROWTH AFTER 5 DAYS 10/18/21 13:10 Blood Culture - Final Blood NO GROWTH AFTER 5 DAYS A&P Assessment and plan (1) Shock: Status: Acute (2) Atrial fibrillation with RVR: Status: Acute (3) Acute respiratory failure: Status: Acute (4) UTI (urinary tract infection): Status: Acute (5) Altered mental status: Status: Acute (6) Renal insufficiency: Status: Acute (7) Hyperammonemia: Status: Acute (8) Hyperkalemia: Status: Acute Plan Patient denies any prior cardiac history and is here for altered mental status, shortness of breath and was found to be in A. fib with RVR. Likely etiology of respiratory failure is COPD. Also had sepsis from UTI. Heart rates are controlled now Patient and family have decided to go hospice. We will sign off. Please call with questions Attestations Medical Necessity Statement*: Care expected to cross 2 midnights Coding Level of Care Code Acute Animal Care Taker for Chg Fwd Diagnoses Shock R57.9 Atrial fibrillation with RVR I48.91 Acute respiratory failure J96.00 UTI (urinary tract infection) N39.0 Altered mental status R41.82 Renal insufficiency N28.9 Hyperammonemia E72.20 Hyperkalemia E87.5
[2021-10-24] VITALS (11 sets, daily range): BP systolic 102–130; BP diastolic 50–84; PULSE 78–129; RESP 16–46; TEMP 36.4–36.8; O2SAT 89–98
[2021-10-24] MEDS: dilTIAZem 60 mg Tablet PO ×2 (02:08→08:25)
[2021-10-24 02:53] LABS: Thyroid Stimulating Immunoglob <89 % baseline (<140)
[2021-10-24] MEDS: levalbuterol 0.63 mg/3 mL Neb INHALATION ×2 (03:31→08:24)
[2021-10-24] MEDS: metoclopramide 5 mg/mL SDV 2 mL IVP ×2 (04:45→12:00)
[2021-10-24] MEDS: morphine 4 mg/mL SDV 1 mL 1 MG IVP (05:39)
[2021-10-24] MEDS: ipratropium 0.5 mg/2.5 mL Neb INHALATION (08:24)
[2021-10-24] MEDS: predniSONE 20 mg Tablet 40 MG PO (08:25)
[2021-10-24] MEDS: budesonide 0.5 mg/2 mL Neb INHALATION (08:25)
[2021-10-24] MEDS: digoxin 125 mcg Tablet PO (08:25)
[2021-10-24] MEDS: methIMAzole 5 MG Tablet PO (08:25)
[2021-10-24] MEDS: amiodarone 200 mg Tablet 400 MG PO (08:25)
[2021-10-24] MEDS: metoprolol tartrate 25 mg Tablet 50 MG PO (08:29)
[2021-10-24] MEDS: pantoprazole DR 40 mg Tablet PO (08:30)
[2021-10-24] MEDS: apixaban 5 mg Tablet PO (08:38)
--- NOTE | 2021-10-24 10:26 | PC.SOCIAL ---
IMM Update pg 2 of IMM updated and reviewed w/ patient. Copy provided and Copy in chart updated.
--- NOTE | 2021-10-24 11:40 | P.DS_ITS ---
Discharge Providers Date of Admission: 10/17/21 23:25 Date of Discharge: October 24, 2021 Attending Provider at Admission: Tim Packer DO Attending Provider at Discharge: Codey Muñoz MD Consults: Cardiology: Dr. Shepherd Pulmonology: Dr. [facility] Diagnoses at Discharge Discharge Diagnosis (1) Shock: Status: Acute (2) Atrial fibrillation with RVR: Status: Acute (3) Acute respiratory failure: Status: Acute (4) UTI (urinary tract infection): Status: Acute (5) Altered mental status: Status: Acute (6) Renal insufficiency: Status: Acute (7) Hyperammonemia: Status: Acute (8) Hyperkalemia: Status: Acute (9) Septic shock: Status: Acute Permanent problem details: Present on admission. Secondary to UTI. Reason for Visit Reason for Visit: [facility] Hospital Course Lilia Hunter is a 80 year old female with no significant past medical history as she never followed up with her physician in over 40 years. She was admitted to the hospital on 10/17 for management of confusion and admission was found to be in atrial fibrillation with RVR along with septic shock and subclinical hyperthyroidism. On admission she was also found to be in hypercapnic respiratory failure with pH of 7.11, PCO2 of 96 which responded to the BiPAP. She was started on treatment for UTI with broad-spectrum antibiotics to which she responded well. Patient's atrial fibrillation was difficult to control. Cardiology was consulted. Eventually patient's heart rate remained controlled on oral amiodarone, metoprolol, Cardizem and digoxin. Patient was started on anticoagulation with full dose Lovenox which was later transitioned over to Eliquis. Patient was found to be persistently hypercapnic with respiratory acidosis and chest imaging was significant for pretty extensive elevation of left hemidiaphragm consistent with possible diaphragmatic paralysis. 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 Pulmonology was consulted. During hospitalization patient mostly remained BiPAP dependent and on coming off BiPAP she was found to be in respiratory distress which as per patient has been her baseline both at rest and on exertion and on verbal communication for last couple of years. Going forward patient would most likely need to be on BiPAP for significant part of the day. Patient was also found to be in subclinical hyperthyroidism. Given her advanced age, persistent difficult to control atrial fibrillation she was started on methimazole. Patient tolerated the treatment well. Multiple goals of care discussion were done with patient, patient's family both at bedside and on over the phone. We discussed options regarding going forward patient would most likely need to be on BiPAP for significant part of the day versus possibly going home with hospice on BiPAP as needed basis. As per the family and patient she would want better quality of life and quality of life and would not want to be on BiPAP for so long. Patient's family opted for hospice. Patient's care was discussed in detail with director of cardiac rehabilitation. She has been discharged in comfortable state back home with hospice. Patient is to avoid taking pain medications until asked by the patient or patient's primary caregiver as it was found that patient would have significant hypercapnia and respiratory acidosis secondary to sedation with pain medications. Physical Exam Narrative: Sitting comfortably in bed. Family at bedside. Extensive examination deferred secondary to hospice status. Urinary Catheter Management: Simpson: Cath Placed During This Visit: yes Reason for Continuing Indwelling Catheter: Other Urinary Catheter Date of Insertion: 10/18/21 Urinary Catheter Time of Insertion: 00:00 Discharge Data Studies Completed and Pending Completed Studies During Hospitalization Category Date Time Status CT chest abdomen pelvis [[place] [id number] Cat Scan 10/19/21 14:09 Completed ] Routine CT chest wo con [id number] Urgent Cat Scan 10/17/21 22:[address] head wo con* [id number] Urgent Cat Scan 10/17/21 23:25 Completed XR acute abdomen series [id number] Routine Exams 10/22/21 09:21 Completed XR chest 1V portable [id number] Urgent Exams 10/17/21 20:41 Completed CV. echo complete* [id number] Routine Ultrasound 10/18/21 00:45 Completed US abdomen limited [id number] Routine Ultrasound 10/18/21 01:54 Completed US thyroid [id number] Urgent Ultrasound 10/18/21 00:45 Completed Radiology Impressions Chest X-Ray 10/17/21 20:41 IMPRESSION: Extremely limited exam with multiple abnormalities as described above. Comparison prior study/CT correlation may be helpful. Chest CT 10/17/21 22:06 IMPRESSION: 1. Markedly elevated left hemidiaphragm. See discussion above. 2. Small bilateral pleural effusions with adjacent consolidations which may represent compressive atelectasis versus pneumonia. Follow-up should be obtained. No ground-glass opacity. 3. Dilatation of main pulmonary artery and ascending aorta. 4. [id number] cardiomegaly with coronary calcification probable mild vascular congestion. No obvious pulmonary edema. 5. Thyroid and vertebral findings as described above. See comments below. COMMENTS: 1. Consistent with the [employer] [place] [employer]'s Incidental Findings Committee white paper (J Am Stefania Radiol 2018): Any incidental renal lesion less than 1 cm or classified as too small to characterize, or any incidental cystic renal lesion characterized as simple-appearing, is likely benign. No follow-up imaging is recommended for these lesions per consensus recommendations based on imaging criteria. 2. Consistent with the [place] [employer]'s Incidental Findings Committee white paper (J Am Stefania Radiol 2015): In patients aged 35 years and older with an incidental thyroid nodule equal to or greater than 1.[address], MRI or extrathyroidal US, further evaluation with dedicated thyroid US is recommended for patients with normal life expectancy and without comorbidities. For smaller nodules without suspicious features, no further evaluation or follow up is recommended. 3. Limited life expectancy and comorbidities that increase the risk of treatment or are more likely to cause morbidity and mortality than the thyroid cancer itself. Patients with comorbidities or limited life expectancy should not have further evaluation, unless it is warranted clinically, or specifically requested by the patient or referring physician. Head CT 10/17/21 23:25 IMPRESSION: 1. No acute intracranial hemorrhage or mass effect. 2. No definite acute infarct by CT, see above. 3. Other findings discussed above. Thyroid Ultrasound 10/18/21 00:45 IMPRESSION: Left thyroid lobe mass measuring 3.9 x 3.2 x 3.6 cm. Abdomen Ultrasound 10/18/21 01:54 IMPRESSION: 1. Limitations as above. 2. The gallbladder could not be visualized. Clinical correlation (prior cholecystectomy?) is recommended. 3. Mild right renal pelviectasis. Chest/Abdomen/Pelvis CT 10/19/21 14:09 IMPRESSION: 1. Comparison chest CT 10/17/2021. Relatively stable appearance with markedly elevated left hemidiaphragm with bibasilar consolidative changes and pleural effusions as described above. 2. Several other findings are also stable. No acute findings otherwise. Please see previous CT exam report 2 days earlier for discussion of thyroid findings. IMPRESSION: 1. Exam very limited due to severe motion and lack of contrast. 2. A gallstone is noted in the right lower quadrant. Unclear if this is within the low lying gallbladder fundus or a stone within the bowel lumen in the setting of gallstone ileus/obstruction. Sonographic correlation may be helpful. There is mild diffuse small bowel distention. No severe colonic obstruction is otherwise identified. 3. No free air or obvious pneumatosis. Small pelvic ascites. 4. Soft tissue and vertebral findings. See discussion above. 5. Other nonacute findings as described. COMMENTS: Consistent with the [place] [employer]'s Incidental Findings Committee white paper (J Am Stefania Radiol 2018): Any incidental renal lesion less than 1 cm or classified as too small to characterize, or any incidental cystic renal lesion characterized as simple-appearing, is likely benign. No follow-up imaging is recommended for these lesions per consensus recommendations based on imaging criteria. Chest/Abdomen X-ray 10/22/21 09:21 IMPRESSION: Similar to slightly improved gaseous distention of small and large bowel loops. Microbiology 10/18/21 13:20 Blood Blood Culture - Final NO GROWTH AFTER 5 DAYS 10/18/21 13:10 Blood Blood Culture - Final NO GROWTH AFTER 5 DAYS 10/18/21 01:15 Urine Catheterized Urine Culture - Final Escherichia coli 10/18/21 22:16 Nose MRSA Culture - Final Echocardiogram: CONCLUSIONS ?Technically limited quality echocardiogram because of poor ?ultrasonic windows ?LV systolic function is normal with EF of 60-65% ?Diastolic function is indeterminate because of atrial ?fibrillation ?Mild tricuspid regurgitation ?No comparison study is available ?Brendan Shepherd MD ?(Electronically Signed) ?Final Date:? ? ? 19 Oct 2021 13:32 S Laboratory Results WBC 9.1 10^3/uL (4.0-10.0) 10/22/21 03:08 RBC 4.88 10^6/uL (4.1-5.3) 10/22/21 03:08 Hgb 13.4 g/dL (11.5-15.3) 10/22/21 03:08 Hct 46.2 % (37.0-47.0) 10/22/21 03:08 MCV 94.7 fl (81-99) 10/22/21 03:08 MCH 27.5 pg (28.0-34.0) L 10/22/21 03:08 MCHC 29.0 g/dL (30.0-36.0) L 10/22/21 03:08 RDW 14.7 % (12.1-15.1) 10/22/21 03:08 Plt Count 165 10^3/cmm (130-400) 10/22/21 03:08 MPV 9.5 fL (7.4-10.4) 10/22/21 03:08 Neut % (Auto) 95.1 % 10/22/21 03:08 Lymph % (Auto) 1.0 % 10/22/21 03:08 [place] % (Auto) 3.1 % 10/22/21 03:08 Eos % (Auto) 0.0 % 10/22/21 03:08 Baso % (Auto) 0.1 % 10/22/21 03:08 Neut # (Auto) 8.63 10^3/uL (1.8-7.7) H 10/22/21 03:08 Lymph # (Auto) 0.1 10^3/uL (0.8-4.8) L 10/22/21 03:08 [place] # (Auto) 0.3 10^3/uL (0.2-0.9) 10/22/21 03:08 Eos # (Auto) 0.0 10^3/uL (0.0-0.8) 10/22/21 03:08 Baso # (Auto) 0.0 10^3/uL (0.0-0.1) 10/22/21 03:08 Nucleated RBC % (auto) 0.2 % 10/22/21 03:08 Nucleated RBCs # 0.0 /100WBC 10/22/21 03:08 PT 17.30 SECONDS (12.1-14.9) H 10/18/21 02:32 INR 1.38 (0.8-1.2) H 10/18/21 02:32 Specimen Type Arterial 10/23/21 18:37 Sample Site Radial, right 10/23/21 18:37 ABG pH 7.18 (7.35-7.45) L* 10/23/21 18:37 ABG pCO2 91.8 mmHg (35-45) H* 10/23/21 18:37 ABG pO2 76.4 mmHg (80.0-100.0) L 10/23/21 18:37 ABG HCO3 34.1 mmol/L (22-26) H 10/23/21 18:37 ABG O2 Saturation 94.5 10/23/21 18:37 ABG Base Excess 2.1 mmol/L (-2.0-2.0) H 10/23/21 18:37 Gasper Test Pos 10/23/21 18:37 A-a O2 Gradient 3.6 mmHg (5-10) L 10/23/21 18:37 Hematocrit 47.1 % (37-47) H 10/23/21 18:37 Hgb O2 Saturation 92.7 % (95-100) L 10/23/21 18:37 Carboxyhemoglobin 1.3 %THgb (0.4-20.1) 10/23/21 18:37 Methemoglobin 0.7 % (0.4-1.5) 10/23/21 18:37 Total Hemoglobin 15.4 g/dL (12-16) 10/23/21 18:37 Sodium 140.0 mmol/L (131-143) 10/23/21 18:37 Potassium 4.4 mmol/L (3.5-5.0) 10/23/21 18:37 Glucose 139.0 mg/dL (70-115) H 10/23/21 18:37 Ionized Calcium 1.3 mmol/L (1.1-1.4) 10/23/21 18:37 O2 Delivery Device Bipap 10/23/21 18:37 O2 Liters/Min 3.0 % 10/22/21 08:42 Tidal Volume 0.50 10/18/21 03:49 PEEP 8.0 cmH20 10/18/21 03:49 FiO2 30.0 % 10/23/21 18:37 Field Sales Specialist ID [facility]h 10/23/21 18:37 Sodium 141 mmol/L (136-145) 10/23/21 04:49 Potassium 4.3 mmol/L (3.5-5.1) 10/23/21 04:49 Chloride 104 mmol/L (98-107) 10/23/21 04:49 Carbon Dioxide 27 mmol/L (22-29) 10/23/21 04:49 Anion Gap 14.3 (5-19) 10/23/21 04:49 BUN 53 mg/dL (8-23) H 10/23/21 04:49 Creatinine 1.1 mg/dL (0.5-0.9) H 10/23/21 04:49 GFR Calculation Not Reportable 10/23/21 04:49 Glucose 116 mg/dL (65-115) H 10/23/21 04:49 Estimat Average Glucose 108 10/20/21 04:15 Hemoglobin A1c 5.4 % (4.0-6.0) 10/20/21 04:15 Calculated Osmolality 307 mOsm/kg (285-295) H 10/23/21 04:49 Lactate 1.2 mmol/L (0.5-2.2) 10/18/21 13:10 Calcium 7.8 mg/dL (8.5-10.5) L 10/23/21 04:49 Phosphorus 3.9 mg/dL (2.5-4.5) 10/19/21 04:29 Magnesium 2.3 mg/dL (1.7-2.3) 10/19/21 04:29 Iron 30 ug/dL (37-145) L 10/19/21 04:29 TIBC 226 mcg/dl 10/19/21 04:29 % Saturation 13.2 % (20-50) L 10/19/21 04:29 Unsat Iron Binding 196 ug/dL (112-347) 10/19/21 04:29 Total Bilirubin 0.8 mg/dL (0.15-1.2) 10/23/21 04:49 AST 26 U/L (0-32) 10/23/21 04:49 ALT 50 U/L (0-33) H 10/23/21 04:49 Alkaline Phosphatase 64 IU/L (35-105) 10/23/21 04:49 Ammonia 42 umol/L (11-51) 10/19/21 10:40 CK-MM (CK-3) 100 % (95-100) 10/18/21 00:50 CK-MB (CK-2) 0 % (<5) 10/18/21 00:50 CK-BB (CK-1) None detected % (None Detected) 10/18/21 00:50 Creatine Kinase Interp see note 10/18/21 00:50 Troponin T Baseline 33 ng/L (0-10) H 10/17/21 20:50 Troponin T 120 Minute 31.82 ng/L (0-10) H 10/17/21 22:53 Delta Troponin T -1.18 ABS# (0-10) L 10/17/21 22:53 Troponin T Hi Sens 6Hr 30.83 ng/L (0-10) H 10/18/21 02:32 Troponin T Hi Sens 6Hr Delta -2.17 ng/L (0-12) L 10/18/21 02:32 C-Reactive Protein 8.2 mg/L (0.0-4.9) H 10/18/21 13:10 NT-Pro-B Natriuret Pep 7554 pg/mL (0-450) H 10/22/21 03:08 Total Protein 5.7 g/dL (6.6-8.7) L 10/23/21 04:49 Albumin 3.5 g/dL (3.5-5.2) 10/23/21 04:49 Globulin 2.2 g/dL (1.3-4.6) 10/23/21 04:49 Procalcitonin 0.09 ng/mL (0-0.5) 10/18/21 13:10 TSH 0.01 uIU/mL (0.27-4.20) L 10/19/21 04:29 Free T4 1.60 ng/dL (0.82-1.77) 10/19/21 04:29 Free T3 4.3 PG/ML (2.0-4.4) 10/18/21 13:10 Total T3 142 ng/dL (76-181) 10/18/21 13:10 Thyroid Stim Immunoglob <89 % baseline (<140) 10/18/21 00:50 Random Cortisol 33.77 ug/dL (2.47-19.5) H 10/19/21 04:29 Urine Color Colorless (Yellow) 10/22/21 11:46 Urine Appearance Clear (CLEAR) 10/22/21 11:46 Urine pH 5 (5-7) 10/22/21 11:46 Ur Specific [place] 1.010 (1.005-1.030) 10/22/21 11:46 Urine Protein Neg (Negative) 10/22/21 11:46 Urine Glucose (UA) Norm (Normal) 10/22/21 11:46 Urine Ketones Negative (Negative) 10/22/21 11:46 Urine Blood Neg (Negative) 10/22/21 11:46 Urine Nitrate Negative (Negative) 10/22/21 11:46 Urine Bilirubin Neg (Negative) 10/22/21 11:46 Urine Urobilinogen Norm mg/dL (Negative) 10/22/21 11:46 Ur Leukocyte Esterase Negative (Negative) 10/22/21 11:46 Urine RBC 0-4 /hpf (0-2) H 10/18/21 01:15 Urine WBC 10-15 /hpf (0-5) H 10/18/21 01:15 Ur Eosinophil Smear 0 (0-0) 10/22/21 11:46 Ur Squamous Epith Cells 5-10 /hpf (0-5) H 10/18/21 01:15 Amorphous Sediment Not Reportable 10/18/21 01:15 Urine Bacteria 4+ /hpf (NONE) H 10/18/21 01:15 Hyaline Casts 0-4 /lpf H 10/18/21 01:15 Urine Mucus 2+ /hpf 10/18/21 01:15 Urine Eosinophils No eosinophils seen 10/22/21 11:46 Urine Creatinine 11 mg/dL (28-217) L 10/22/21 11:46 Random Vancomycin 7.6 ug/mL (20.0-40.0) L 10/19/21 04:29 Vancomycin Trough 9.9 ug/mL (10-15) L 10/20/21 11:52 Digoxin 1.1 ng/mL (0.6-1.2) 10/21/21 06:30 Urine Opiates Screen Negative ng/mL (Negative) 10/18/21 01:15 Ur Barbiturates Screen Negative ng/mL (Negative) 10/18/21 01:15 Ur Phencyclidine Scrn Negative ng/mL (Negative) 10/18/21 01:15 Ur Amphetamines Screen Negative ng/mL (Negative) 10/18/21 01:15 U Benzodiazepines Scrn Negative ng/mL (Negative) 10/18/21 01:15 Urine Cocaine Screen Negative ng/mL (Negative) 10/18/21 01:15 U Marijuana (THC) Screen Negative ng/mL (Negative) 10/18/21 01:15 Thyroglobulin Antibody <1 IU/mL (< or = 1) 10/18/21 00:50 Thyroid Peroxidase Ab 1 IU/mL (<9) 10/18/21 00:50 Hepatitis A IgM Ab Non-reactive (Nonreactive) 10/18/21 02:39 Hep Bs Antigen Non-reactive (Nonreactive) 10/18/21 02:39 Hep B Core IgM Ab Non-reactive (Nonreactive) 10/18/21 02:39 Hepatitis C Antibody Non-reactive (Nonreactive) 10/18/21 02:39 Vitals Last Vital Signs Temp 98.2 F 10/24/21 07:45 Pulse 110 H 10/24/21 08:30 Resp 28 H 10/24/21 08:30 BP 120/77 10/24/21 07:45 Pulse Ox 92 10/24/21 08:30 Discharge Plan Discharge Patient Disposition: Hospice - Home Condition: Stable Prescriptions: New amiodarone [Pacerone] 200 mg Tablet 200 mg PO BID Qty: 30 0RF prednisone 20 mg Tablet 40 mg PO DAILY Qty: 10 0RF pantoprazole 40 mg Tablet,Delayed Release (Dr/Ec) 40 mg PO DAILY Qty: 30 0RF methimazole 5 mg Tablet 5 mg PO DAILY Qty: 30 0RF digoxin 125 mcg (0.125 mg) Tablet 125 mcg PO DAILY Qty: 30 0RF diltiazem HCl 60 mg Tablet 60 mg PO Q6H Qty: 120 0RF metoprolol tartrate 25 mg Tablet 50 mg PO BID@0900,2100 30 Days Qty: 120 0RF Eliquis 5 mg Tablet 5 mg PO BID@0900,2100 Qty: 60 0RF No Action No Known Home Medications 0RF Discharge Orders: Discharge Order (Routine); Ordered 10/24/21 Ordered By: Codey Muñoz Referrals: [facility] ([facility]) [Outside] Discharge Diet: Advance as tolerated and As Directed Discharge Activity: Resume usual activity and Increase activity as tolerated Patient Instructions: Opioid Safety Discharge Attestations Time Spent in Discharge Care*: greater than 30 min Specific Discharge Activities: educating and/or supporting family/caregiver, discussing with pcp/other providers, discussing with manager case management/social workers/dc planners, documenting/other paperwork and evaluating patient/reviewing data Status at Discharge: Cognitive status at discharge: cognitively intact , Behavioral status at discharge: cooperative , Functional status at discharge: bed bound , Overall status at discharge: patient has a new baseline Quality Metrics Clinical Quality Measures [ No reported AMI, CVA or VTE this stay] Coding Level of Care Code Acute Chg FW DC note History Comprehensive Exam Comprehensive Medical Decision Making High Complexity Diagnoses Shock R57.9 Atrial fibrillation with RVR I48.91 Acute respiratory failure J96.00 UTI (urinary tract infection) N39.0 Altered mental status R41.82 Renal insufficiency N28.9 Hyperammonemia E72.20 Hyperkalemia E87.5 Septic shock A41.9; R65.21
--- NOTE | 2021-10-24 13:50 | PC.NURSE ---
Discharged patient home on hospice. Went over discharge paperwork. Hospice nurse at home waiting on patient. Family verbalized understanding.
--- NOTE | 2021-10-24 13:54 | PC.NURSE ---
Notified Dr. Pagan 1300 of patients O2 stats down to 77-86. Respiratory in an put a non-rebreather on.
== END 2021-10-24 13:53 | disposition hospice, home (50) | DRG 871 ==
LOC: ER 22:06 → ICU 23:44 → MEDSURG 10-22 23:53
PROVIDERS: Internal Medicine; Internal Medicine Pulmonary Disease; Admitting Provider Internal Medicine; Emergency Provider Student in an Organized Health Care Education/Training Program; Visit Provider Student in an Organized Health Care Education/Training Program
DX: A41.9 Sepsis, unspecified organism (principal); R65.21 Severe sepsis with septic shock; G93.41 Metabolic encephalopathy; J96.22 Acute and chronic respiratory failure with hypercapnia; J96.21 Acute and chronic respiratory failure with hypoxia; N39.0 Urinary tract infection, site not specified; N17.9 Acute kidney failure, unspecified; I5A Non-ischemic myocardial injury (non-traumatic); K56.7 Ileus, unspecified; E87.2 Acidosis; I48.91 Unspecified atrial fibrillation; E07.9 Disorder of thyroid, unspecified; I25.10 Atherosclerotic heart disease of native coronary artery without angina pectoris; M85.80 Other specified disorders of bone density and structure, unspecified site; I95.9 Hypotension, unspecified; R68.0 Hypothermia, not associated with low environmental temperature; E87.5 Hyperkalemia; Z66 Do not resuscitate; B96.20 Unspecified Escherichia coli [E. coli] as the cause of diseases classified elsewhere; J98.6 Disorders of diaphragm; J44.9 Chronic obstructive pulmonary disease, unspecified
CPT/HCPCS: 36415; 36600; 51702; 70450; 71045; 71250; 74022; 74176; 76536; 76705; 80051; 80053; 80069; 80074; 80162; 80202; 80306; 81001; 81003; 82140; 82252; 82330; 82533; 82570; 82803; 82805; 83036; 83540; 83550; 83605; 83735; 83880; 84100; 84145; 84439; 84443; 84445; 84480; 84481; 84484; 85025; 85610; 85999; 86140; 86376; 86800; 87040; 87077; 87086; 87186; 87641; 93005; 93306; 94640; 94660; 94762; 96365; 96366; 96372; 96375; 97110; 97161; 97530; 99291; C9113; J0282; J0456; J1160; J1650; J1940; J2060; J2270; J2543; J2765; J2920; J2930; J3370; J3480; J3490; J7030; J7040; J7050; J7060; J7512; J7614; J7626; J7644